=== PATIENT | male | born 1950 | race Caucasian/White ===

== ENCOUNTER 2018-06-27 16:25 | Inpatient (IN) ==
[2018-06-27] MEDS ORDERED: Acetaminophen 325 MG TABLET PO ONE (16:42)
[2018-06-27] MEDS ORDERED: 0.9 % Sodium Chloride 1,000 ML IVC ONE (16:42)
--- NOTE | 2018-06-27 16:47 | Emergency Department Note ---
Disposition Clinical Impression: Pneumonia, Weakness, Hyponatremia Disposition: Admitted As Inpatient Condition: Fair Forms: ED Satisfaction Letter Weakness HPI - General Chief complaint: ED Weakness Stated complaint: weakness Time Seen by Provider: 06/27/18 16:30 Source: patient Mode of arrival: private vehicle Limitations: no limitations Nursing Notes Reviewed: Yes Vital Signs Reviewed: Yes - History of Present Illness HPI Narrative: This is a 68-year-old male who presents with complaints of fever, fatigue, weakness, body aches, and a productive cough. Patient states he has been sick for 1 week and was seen 3 days ago for the same and told he had a virus and sent home. Patient states he has just gotten worse at home and is not eating or drinking. Patient's Tmax has been 103. Patient denies any abdominal pain, vomiting, or urinary symptoms. Patient does state associated diarrhea. Patient denies chest pain. Pt Subjective Complaint: generalized weakness/fatigue Onset (ago): week(s) (1) Duration: constant - Related Data Home Medications Medication Instructions Recorded Confirmed Metoprolol XL (24 HR) Succ [Toprol 25 mg PO DAILY 04/22/15 06/22/18 Xl] Multivits,Ca,Min/Iron/FA/Lycop 1 each PO DAILY 04/22/15 06/22/18 [Centrum Men's Tablet] Pioglitazone [Actos] 45 mg PO DAILY 04/22/15 06/22/18 Ramipril [Altace] 10 mg PO DAILY 04/22/15 06/22/18 Tizanidine HCl 4 mg PO Q8HR PRN 04/22/15 06/22/18 metFORMIN [Glucophage] 1,000 mg PO BID 04/22/15 06/22/18 Clopidogrel [Plavix] 75 mg PO DAILY 09/29/17 06/22/18 Sertraline [Zoloft] 150 mg PO DAILY 09/29/17 06/22/18 Albuterol Sulfate [Ventolin Hfa] 2 inh IH Q6HR PRN 12/12/17 06/22/18 Amlodipine Besylate 2.5 mg PO BID 12/12/17 06/22/18 Azelastine HCl [Astepro] 2 spray NS BID 12/12/17 06/22/18 Dapagliflozin Propanediol [Farxiga] 5 mg PO DAILY 12/12/17 06/22/18 Insulin Degludec [Tresiba 10 unit SQ HS 12/12/17 06/22/18 Flextouch U-200] Iron,Carbonyl/Ascorbic Acid 1 each PO BID 12/12/17 06/22/18 [Vitron-C Tablet] glipiZIDE [Glipizide] 10 mg PO BID 04/12/18 06/22/18 Previous Rx's Medication Instructions Recorded Omeprazole [PriLOSEC] 20 mg PO BIDAC #60 cap 09/29/17 Aspirin 81 mg PO DAILY #30 tab.chew 01/17/18 Allergies Allergy/AdvReac Type Severity Reaction Status Date / Time atorvastatin [From Lipitor] AdvReac Muscle Pain Verified 06/22/18 08:16 rosuvastatin [From Crestor] AdvReac Muscle Pain Verified 06/22/18 08:16 simvastatin AdvReac Muscle Pain Verified 06/22/18 08:16 All systems ED: reviewed and negative except as stated. Constitutional: Reports: fever, chills, weakness (general). Denies: weight change Eyes: Denies: eye pain, eye discharge, vision change ENT ED: Denies: ear pain, throat pain, dental pain, hearing loss, epistaxis, congestion, dysphagia Cardiovascular: Denies: chest pain, palpitations, dyspnea on exertion, edema, syncope Respiratory: Reports: cough, dyspnea. Denies: wheezes, hemoptysis, stridor Gastrointestinal: Reports: diarrhea. Denies: abdominal pain, nausea, vomiting, constipation, hematemesis, melena, hematochezia Genitourinary: Denies: urgency, dysuria, frequency, hematuria Musculoskeletal: Reports: myalgia. Denies: back pain, neck pain, arthralgia Integumentary: Denies: rash, abrasion, lesions Neurological: Denies: headache, weakness, numbness, paresthesias, confusion, abnormal gait, vertigo Psychiatric: Denies: anxiety, depression, suicidal thoughts, homicidal thoughts, auditory hallucinations, visual hallucinations Endocrine: Reports: fatigue Hematological/Lymphatic: Denies: easy bleeding, easy bruising Allergic/Immunologic: Denies: facial swelling, urticaria Past Medical History - Past Medical History Attestation: Yes The following information was validated with the patient. Source: patient Medical history: Reports: coronary artery disease, diabetes, GERD, hyperlipidemia Surgical history: Reports: angioplasty/stent, appendectomy, cholecystectomy, knee replacement, sinus surgery, tonsilectomy, other Psychiatric history: Reports: depression - Social History Smoking Status: Current every day smoker Smokeless Tobacco Status: No Alcohol use: Reports: rarely Drug use: Reports: none Physical Exam - General Limitations: no limitations General appearance: alert, in no apparent distress - Head Head exam: atraumatic, normocephalic, normal inspection - Eye Eye exam: Present: normal appearance, PERRL, EOMI - ENT ENT exam: normal exam, normal oropharynx, mucous membranes moist - Expanded ENT Exam External ear exam: Present: normal external inspection Mouth exam: Present: normal external inspection Teeth exam: Present: normal inspection Throat exam: Present: normal inspection - Neck Neck exam: Present: normal inspection, full ROM, trachea midline - Chest Chest inspection: Present: normal inspection, symmetric chest wall rise - Respiratory Respiratory exam: Present: other (rhonchi) - Cardiovascular Cardiovascular exam: Present: normal rhythm, tachycardia, normal heart sounds - Abdominal Exam Abdominal exam: Present: soft, Non-Tender. Absent: tenderness, distention, guarding, rebound, rigidity - Extremities Exam Extremities exam: Present: normal inspection, full ROM. Absent: tenderness, pedal edema - Expanded Upper Extremity Exam Shoulder exam: Present: normal inspection, full ROM Arm exam: Present: normal inspection, full ROM Elbow exam: Present: normal inspection, full ROM Forearm/Wrist exam: Present: normal inspection, full ROM Hand exam: Present: normal inspection, full ROM Vascular exam: Normal: capillary refill, radial pulse - Expanded Lower Extremity Exam Hip/Pelvis exam: Present: normal inspection, full ROM Upper leg exam: Present: normal inspection, full ROM Knee exam: Present: normal inspection, full ROM Lower leg exam: Present: normal inspection, full ROM Ankle exam: Present: normal inspection, full ROM Foot/toe exam: Present: normal inspection, full ROM Neurovascular/Tendon exam: Absent: motor deficit, sensory deficit, tendon deficit - Back Exam Back exam: Present: normal inspection, full ROM. Absent: tenderness - Neurological Exam Neurological exam: Present: alert, oriented X3 - Expanded Neurological Exam Patient oriented to: Present: person, place, time Coma Scale Eye Opening: Spontaneous Coma Scale Motor Response: Obeys Commands Coma Scale Verbal Response: Oriented Coma Scale Total: 15 - Psychiatric Psychiatric exam: Present: normal affect, normal mood - Skin Skin exam: Present: warm, dry, intact, normal color Course - Reevaluation(s) Reevaluation #1: I spoke with patient about admission and okay with this plan and all questions answered. Time: 18:30 - Consultations Consultation #1: I spoke with Dr. Dye hospitalist okay to admit. Time: 18:25 Vital Signs Temperature 98.9 F 06/27/18 16:40 Pulse Rate 99 06/27/18 16:40 Respiratory Rate 16 06/27/18 16:40 Blood Pressure 118/56 06/27/18 16:40 O2 Sat by Pulse Oximetry 99 06/27/18 16:40 Temperature 98.9 F 06/27/18 16:40 Pulse Rate 62 06/27/18 17:27 Respiratory Rate 18 06/27/18 17:27 Blood Pressure 132/63 06/27/18 17:27 O2 Sat by Pulse Oximetry 100 06/27/18 17:27 Oxygen Delivery Oxygen Delivery Nasal Cannula Weakness - Medical Records Medical records reviewed: Yes I reviewed the patient's medical records. - Lab Data Lab results reviewed: Yes I reviewed the patient's lab results. Result diagrams: 06/27/18 16:57 06/27/18 16:57 Lab Results 06/27/18 06/27/18 06/27/18 Range/Units 16:57 16:57 16:57 WBC 3.7 L (4.3-11.1) K/mcL RBC 3.49 L (4.19-5.50) M/mcL Hgb 9.5 L (12.9-16.9) g/dL Hct 30.1 L (37.5-50.1) % MCV 86.2 (83.0-100.0) fL MCH 27.2 L (28.0-33.3) pg MCHC 31.6 (31.6-35.5) g/dL RDW 17.4 H (11.5-14.5) % Plt Count 134 L (140-400) K/mcL MPV 10.4 (9.4-12.4) fL Seg Neutrophils % 62.0 % Band Neutrophils % 4.0 (0-4) % Lymphocytes % 26.0 % Monocytes % 8.0 % Neutrophils # 2.4 (1.6-8.9) K/mcL Lymphocytes # 1.0 (0.6-4.6) K/mcL Monocytes # 0.3 (0.0-1.3) K/mcL Platelet Estimate Decreased L (Normal) PT 11.7 (9.4-12.1) Seconds INR 1.0 APTT 31.9 (26.0-36.0) Seconds Sodium 130 L (136-145) mEq/L Potassium 3.4 L (3.5-5.1) mEq/L Chloride 100 (98-107) mEq/L Carbon Dioxide 20 L (23-29) mEq/L BUN 22 (8-23) mg/dL Creatinine 0.86 (0.70-1.30) mg/dL Est GFR ( Amer) > 60 (> 60) Est GFR (Non-Af Amer) > 60 (> 60) BUN/Creatinine Ratio 26 (6-26) Glucose 82 (70-105) mg/dL Calculated Osmolality 272 L (280-300) Lactic Acid (0.5-2.2) mmol/L Calcium 8.4 L (8.6-10.3) mg/dL Magnesium 1.8 (1.6-2.6) mg/dL Total Bilirubin 0.3 (0.3-1.0) mg/dL AST 37 (13-39) Units/L ALT 27 (7-52) Units/L Alkaline Phosphatase 37 (34-104) Units/L Troponin I < 0.03 (< 0.04) ng/mL B-Natriuretic Peptide (Less than 100) pg/mL Serum Total Protein 6.5 (6.4-8.9) g/dL Albumin 3.7 (3.5-5.7) g/dL Globulin 2.8 (2.4-3.5) g/dL Albumin/Globulin Ratio 1.3 (1.1-2.2) Lipase (11-82) Units/L TSH 1.013 (0.340-5.600) mcIU/mL Urine Color (Yellow) Urine Clarity (Clear) Urine pH (5.0-8.0) pH Units Ur Specific [place] (1.010-1.025) Urine Protein (Neg-Trace) mg/dL Urine Glucose (UA) (Normal) mg/dL Urine Ketones (Negative) mg/dL Urine Blood (Negative) Urine Nitrite (Negative) Urine Bilirubin (Negative) Urine Urobilinogen (Normal) mg/dL Ur Leukocyte Esterase (Negative) Urine Microscopic RBC (0-3) per hpf Urine Microscopic WBC (0-3) per hpf Ur Squamous Epith Cells (None-Few) per lpf Urine Bacteria (None-Few) per hpf Hyaline Casts (None-Few) per lpf Granular Casts (None Seen) per lpf Ur Culture Indicated? (NO) 06/27/18 06/27/18 06/27/18 Range/Units 16:57 16:57 16:57 WBC (4.3-11.1) K/mcL RBC (4.19-5.50) M/mcL Hgb (12.9-16.9) g/dL Hct (37.5-50.1) % MCV (83.0-100.0) fL MCH (28.0-33.3) pg MCHC (31.6-35.5) g/dL RDW (11.5-14.5) % Plt Count (140-400) K/mcL MPV (9.4-12.4) fL Seg Neutrophils % % Band Neutrophils % (0-4) % Lymphocytes % % Monocytes % % Neutrophils # (1.6-8.9) K/mcL Lymphocytes # (0.6-4.6) K/mcL Monocytes # (0.0-1.3) K/mcL Platelet Estimate (Normal) PT (9.4-12.1) Seconds INR APTT (26.0-36.0) Seconds Sodium (136-145) mEq/L Potassium (3.5-5.1) mEq/L Chloride (98-107) mEq/L Carbon Dioxide (23-29) mEq/L BUN (8-23) mg/dL Creatinine (0.70-1.30) mg/dL Est GFR ( Amer) (> 60) Est GFR (Non-Af Amer) (> 60) BUN/Creatinine Ratio (6-26) Glucose (70-105) mg/dL Calculated Osmolality (280-300) Lactic Acid 1.2 (0.5-2.2) mmol/L Calcium (8.6-10.3) mg/dL Magnesium (1.6-2.6) mg/dL Total Bilirubin (0.3-1.0) mg/dL AST (13-39) Units/L ALT (7-52) Units/L Alkaline Phosphatase (34-104) Units/L Troponin I (< 0.04) ng/mL B-Natriuretic Peptide 46 (Less than 100) pg/mL Serum Total Protein (6.4-8.9) g/dL Albumin (3.5-5.7) g/dL Globulin (2.4-3.5) g/dL Albumin/Globulin Ratio (1.1-2.2) Lipase 47 (11-82) Units/L TSH (0.340-5.600) mcIU/mL Urine Color (Yellow) Urine Clarity (Clear) Urine pH (5.0-8.0) pH Units Ur Specific [place] (1.010-1.025) Urine Protein (Neg-Trace) mg/dL Urine Glucose (UA) (Normal) mg/dL Urine Ketones (Negative) mg/dL Urine Blood (Negative) Urine Nitrite (Negative) Urine Bilirubin (Negative) Urine Urobilinogen (Normal) mg/dL Ur Leukocyte Esterase (Negative) Urine Microscopic RBC (0-3) per hpf Urine Microscopic WBC (0-3) per hpf Ur Squamous Epith Cells (None-Few) per lpf Urine Bacteria (None-Few) per hpf Hyaline Casts (None-Few) per lpf Granular Casts (None Seen) per lpf Ur Culture Indicated? (NO) 06/27/18 Range/Units 17:25 WBC (4.3-11.1) K/mcL RBC (4.19-5.50) M/mcL Hgb (12.9-16.9) g/dL Hct (37.5-50.1) % MCV (83.0-100.0) fL MCH (28.0-33.3) pg MCHC (31.6-35.5) g/dL RDW (11.5-14.5) % Plt Count (140-400) K/mcL MPV (9.4-12.4) fL Seg Neutrophils % % Band Neutrophils % (0-4) % Lymphocytes % % Monocytes % % Neutrophils # (1.6-8.9) K/mcL Lymphocytes # (0.6-4.6) K/mcL Monocytes # (0.0-1.3) K/mcL Platelet Estimate (Normal) PT (9.4-12.1) Seconds INR APTT (26.0-36.0) Seconds Sodium (136-145) mEq/L Potassium (3.5-5.1) mEq/L Chloride (98-107) mEq/L Carbon Dioxide (23-29) mEq/L BUN (8-23) mg/dL Creatinine (0.70-1.30) mg/dL Est GFR ( Amer) (> 60) Est GFR (Non-Af Amer) (> 60) BUN/Creatinine Ratio (6-26) Glucose (70-105) mg/dL Calculated Osmolality (280-300) Lactic Acid (0.5-2.2) mmol/L Calcium (8.6-10.3) mg/dL Magnesium (1.6-2.6) mg/dL Total Bilirubin (0.3-1.0) mg/dL AST (13-39) Units/L ALT (7-52) Units/L Alkaline Phosphatase (34-104) Units/L Troponin I (< 0.04) ng/mL B-Natriuretic Peptide (Less than 100) pg/mL Serum Total Protein (6.4-8.9) g/dL Albumin (3.5-5.7) g/dL Globulin (2.4-3.5) g/dL Albumin/Globulin Ratio (1.1-2.2) Lipase (11-82) Units/L TSH (0.340-5.600) mcIU/mL Urine Color Yellow (Yellow) Urine Clarity Clear (Clear) Urine pH 6.0 (5.0-8.0) pH Units Ur Specific [place] 1.030 H (1.010-1.025) Urine Protein 100 H (Neg-Trace) mg/dL Urine Glucose (UA) 500 H (Normal) mg/dL Urine Ketones Trace H (Negative) mg/dL Urine Blood Small H (Negative) Urine Nitrite Negative (Negative) Urine Bilirubin Negative (Negative) Urine Urobilinogen Normal (Normal) mg/dL Ur Leukocyte Esterase Negative (Negative) Urine Microscopic RBC 0-3 (0-3) per hpf Urine Microscopic WBC 3-5 H (0-3) per hpf Ur Squamous Epith Cells Many H (None-Few) per lpf Urine Bacteria None Seen (None-Few) per hpf Hyaline Casts Few (None-Few) per lpf Granular Casts Few H (None Seen) per lpf Ur Culture Indicated? NO (NO) - Radiology Data Radiology results reviewed: Yes I reviewed the patient's radiology results. - EKG Data EKG attestation: Yes I reviewed and interpreted this EKG. EKG shows normal: sinus rhythm Rate: tachycardia Rhythm: NSR Lily/QRS: normal When compared to previous EKG there are: no significant changes Interpretation: no acute changes
[2018-06-27 17:13] LABS: Hematocrit 30.1 % (37.5-50.1); Hemoglobin 9.5 g/dL (12.9-16.9); Mean Corpuscular HGB Conc 31.6 g/dL (31.6-35.5); Mean Corpuscular Hemoglobin 27.2 pg (28.0-33.3); Mean Corpuscular Volume 86.2 fL (83.0-100.0); Mean Platelet Volume 10.4 fL (9.4-12.4); Monocytes # 0.3 K/mcL (0.0-1.3); Platelet Count 134 K/mcL (140-400); Red Blood Count 3.49 M/mcL (4.19-5.50); Red Cell Distribution Width 17.4 % (11.5-14.5)
[2018-06-27 17:21] LABS: Prothrombin Time 11.7 Seconds (9.4-12.1)
[2018-06-27 17:24] LABS: Activated Partial Thrombo Time 31.9 Seconds (26.0-36.0)
[2018-06-27 17:36] LABS: BUN/Creatinine Ratio 26 (6-26); Blood Urea Nitrogen 22 mg/dL (8-23); Carbon Dioxide 20 mEq/L (23-29); Chloride 100 mEq/L (98-107); Glucose 82 mg/dL (70-105); Magnesium 1.8 mg/dL (1.6-2.6); Osmolality,Calculated 272 (280-300); Potassium 3.4 mEq/L (3.5-5.1); Sodium 130 mEq/L (136-145); eGFR For Non-African Americans > 60 (> 60)
[2018-06-27 17:37] LABS: Alanine Aminotransferase 27 Units/L (7-52); Albumin 3.7 g/dL (3.5-5.7); Albumin/Globulin Ratio 1.3 (1.1-2.2); Alkaline Phosphatase 37 Units/L (34-104); Aspartate Amino Transferase 37 Units/L (13-39); Bilirubin,Total 0.3 mg/dL (0.3-1.0); Calcium 8.4 mg/dL (8.6-10.3); Globulin 2.8 g/dL (2.4-3.5); Total Protein 6.5 g/dL (6.4-8.9); Troponin I < 0.03 ng/mL (< 0.04)
[2018-06-27 17:47] LABS: Thyroid Stimulating Hormone 1.013 mcIU/mL (0.340-5.600)
[2018-06-27 17:51] LABS: Bilirubin,Urine Negative (Negative); Blood,Urine Small (Negative); Clarity,Urine Clear (Clear); Color,Urine Yellow (Yellow); Glucose,Urine (UA) 500 mg/dL (Normal); Ketones,Urine Trace mg/dL (Negative); Leukocyte Esterase,Urine Negative (Negative); Nitrite,Urine Negative (Negative); Protein,Urine 100 mg/dL (Neg-Trace); Urobilinogen,Urine Normal (Normal)
[2018-06-27 17:53] LABS: Bacteria,Urine None Seen per hpf (None-Few); Hyaline Casts,Urine Few per lpf (None-Few); RBC,Urine 0-3 per hpf (0-3); Squamous Epithelial Cell,Urine Many per lpf (None-Few)
[2018-06-27 17:55] LABS: Neutrophils # 2.4 K/mcL (1.6-8.9); Platelet Estimate Decreased (Normal)
[2018-06-27 18:03] LABS: Granular Casts,Urine Few per lpf (None Seen)
[2018-06-27] MEDS ORDERED: Azithromycin 500 MG in D5% in Water 250 ML IVPB ONE (18:24)
[2018-06-27] MEDS ORDERED: cefTRIAXone 1,000 MG in 0.9 % Sodium Chloride Mini Bag 100 ML IVPB ONE (18:24)
[2018-06-27] MEDS ORDERED: Naloxone 0.4 MG/ML INJ IVP PRN (22:44)
[2018-06-27] MEDS ORDERED: *HR* Dextrose 50 % in Water (Syg) 50 ML SYRINGE IVP PRN (22:54)
[2018-06-27] MEDS ORDERED: D5% in Water 1,000 ML IVC PRN (22:54)
[2018-06-27] MEDS ORDERED: Dextrose Gel 15 GM/37.5 ML TUBE PO PRN ×2 (22:54)
--- NOTE | 2018-06-27 23:52 | Internal Med History&Physical ---
<Abisai Montano P - Last Filed: 06/28/18 01:09> Date of Encounter: 06/28/18 Time of Encounter: 22:00 Internal Medicine - H&P: HPI Chief complaint: Pneumonia Admitted From: Home Plans for Post Hospital Care: Home History of present illness: Mr. Rainey is a 68 year old male with past medical history significant for CAD with 8 stents (last stent placement Fall 2017), hyperlipidemia, COPD, sleep apnea with CPAP, chronic anemia, diabetes, GERD, and depression who presents from primary care office for shortness of breath and fever. Was seen and discharged in ER on 06/23/2018 for similar symptoms. At that time was diagnosed with viral illness, tested negative for flu, and reportedly improved with fluids while in ED. Followed up with PCP today who subsequently sent him to the ER. Symptoms initially started 06/22/2018 and have gotten progressively worse. Has only taken tylenol at home for fever. Has had shortness of breath, chest tightness with non productive cough, nausea, vomiting, fever (highest 103 at home), aches, chills, fatigue, diarrhea, and decreased oral intake. Denies any urinary changes or hematemesis. Does report 2 episodes of dark red blood in stool last week prior to symptom onset but none since. Had colonoscopy completed with Dr Florence September 2017 showing diverticula and small polyp. Has chronic anemia for which he follows with the cancer center where he receives iron transfusions and is scheduled for one next week. Checks blood sugars regularly at home and reports they have been averaging 115. ER reported EKG as sinus tachycardia with no acute changes. ER obtained chest xray which showed new preihilar consolidations seen on the right, probably in the right lower lobe, compatible with perihilar pneumonia that should be followed to resolution. This was a new finding when compared with chest xray completed on 06/23/2018 while in the ED. Was placed on 4lpm nasal canula while in ER and does not wear any oxygen at home at baseline. Past Med Surg Social Fam HX - Past Medical History Medical history: coronary artery disease, diabetes, GERD, hyperlipidemia Additional medical history: sleep apnea, glaucoma, BPH, Psychiatric history: depression - Past Surgical History Surgical History: angioplasty/stent, appendectomy, cholecystectomy, knee replacement, sinus surgery, tonsilectomy, other Additional surgical history: Right knee replacement - Social History Smoking Status: Current every day smoker Smokeless Tobacco Status: No Alcohol use: rarely Drug use: none - Family History Father Hx Family Cardiac Disorders: Yes Internal Medicine - H&P: Meds Metoprolol XL (24 HR) Succ [Toprol Xl] 25 mg PO DAILY 04/22/15 [History] Multivits,Ca,Min/Iron/FA/Lycop [Centrum Men's Tablet] 1 tab PO DAILY 04/22/15 [History] Pioglitazone [Actos] 45 mg PO DAILY 04/22/15 [History] Tizanidine HCl 4 mg PO HS PRN 04/22/15 [History] metFORMIN [Glucophage] 1,000 mg PO BID 04/22/15 [History] Clopidogrel [Plavix] 75 mg PO DAILY 09/29/17 [History] Sertraline [Zoloft] 150 mg PO DAILY 09/29/17 [History] Albuterol Sulfate [Ventolin Hfa] 2 inh IH Q6HR PRN 12/12/17 [History] Dapagliflozin Propanediol [Farxiga] 5 mg PO DAILY 12/12/17 [History] Insulin Degludec [Tresiba Flextouch U-200] 10 unit SQ HS 12/12/17 [History] Aspirin 81 mg PO DAILY #30 tab.chew 01/17/18 [Rx] glipiZIDE [Glipizide] 10 mg PO BID 04/12/18 [History] Amlodipine Besylate 2.5 mg PO DAILY 06/27/18 [History] Ferrous Sulfate [Iron] 325 mg PO HS 06/27/18 [History] Omeprazole [PriLOSEC] 20 mg PO BID 06/27/18 [History] Ramipril 10 mg PO DAILY 06/27/18 [History] Zinc Acetate [Galzin] 50 mg PO DAILY 06/27/18 [History] Allergy/AdvReac Type Severity Reaction Status Date / Time atorvastatin [From Lipitor] AdvReac Muscle Pain Verified 06/27/18 21:46 rosuvastatin [From Crestor] AdvReac Muscle Pain Verified 06/27/18 21:46 simvastatin AdvReac Muscle Pain Verified 06/27/18 21:46 All Systems PM: A 10-system review of systems was performed and is negative for pertinent findings except as documented above in the HPI. - Constitutional Vitals: Temp Pulse Resp BP Pulse Ox 99.5 F 96 18 127/73 98 06/27/18 22:29 06/27/18 22:29 06/27/18 22:29 06/27/18 22:29 06/27/18 22:29 Exam: General: Alert and oriented. Skin:Normal color, no rash, no lesions. HEENT:Pupils equal, round and reactive. Cardiovascular:Normal S1 & S2, no rubs, murmurs or gallops. No JVD. Pulse regular. Lungs:Breath sounds decreased throughout, no wheezes or crackles. Abdomen:Soft, non-tender, no rigidity. Extremities:No deformity, no edema or tenderness, no joint swelling or clubbing. Neurological:Normal cognition and motor skills. Pulses:Carotid and radial pulses normal +2. Rest of the physical exam is non contributory. Internal Med - H&P Results - Labs CBC & Chem 7: 06/27/18 23:27 06/27/18 16:57 Labs: Short CBC 06/27/18 Range/Units 16:57 WBC 3.7 L (4.3-11.1) K/mcL Hgb 9.5 L (12.9-16.9) g/dL Hct 30.1 L (37.5-50.1) % Plt Count 134 L (140-400) K/mcL Neutrophils # 2.4 (1.6-8.9) K/mcL BMP 06/27/18 16:57 Sodium 130 L Potassium 3.4 L Chloride 100 Carbon Dioxide 20 L BUN 22 Creatinine 0.86 Glucose 82 Calcium 8.4 L Cardiac Enzymes 06/27/18 Range/Units 16:57 Troponin I < 0.03 (< 0.04) ng/mL Liver Function 06/27/18 Range/Units 16:57 Total Bilirubin 0.3 (0.3-1.0) mg/dL AST 37 (13-39) Units/L ALT 27 (7-52) Units/L Alkaline Phosphatase 37 (34-104) Units/L Albumin 3.7 (3.5-5.7) g/dL Urine 06/27/18 Range/Units 17:25 Urine Color Yellow (Yellow) Urine Clarity Clear (Clear) Urine pH 6.0 (5.0-8.0) pH Units Ur Specific [place] 1.030 H (1.010-1.025) Urine Protein 100 H (Neg-Trace) mg/dL Urine Glucose (UA) 500 H (Normal) mg/dL - Impressions ITS Impressions Chest X-Ray 06/27/18 16:42 IMPRESSION: New perihilar consolidations seen on the right, probably in the right lower lobe, compatible with perihilar pneumonia. That should be followed to resolution. D/ / Saul Caceres MD / Saul Caceres MD Interpreting Provider: Saul Caceres MD - Assessment and Plan (1) Pneumonia Current Visit: Yes Status: Acute Assessment and plan: Chest xray with new perihilar consolidations in right lower lobe. Blood cultures and urine antigens pending. Influenza A and B antigens negative. Single liter bolus received in ER, will repeat second liter bolus and start MIVF. Rocephin and Azithromycin started in ER, will continue same antibiotics daily and add Levaquin. Continue oxygen via nasal canula, titrate as tolerated to maintain saturation greater than 92%. Qualifiers: Pneumonia type: due to unspecified organism Laterality: right Lung location: lower lobe of lung Qualified Code(s): J18.1 - Lobar pneumonia, unspecified organism (2) Shortness of breath Current Visit: Yes Status: Acute Assessment and plan: Likely secondary to pneumonia. Will obtain chest CTA to rule out PE given accompanying chest tightness and tachycardia. (3) Anemia Current Visit: Yes Status: Acute Assessment and plan: Acute on chronic. No current signs of bleeding, reports possible dark red blood in stool last week. Repeat labs ordered. Qualifiers: Anemia type: unspecified type Qualified Code(s): D64.9 - Anemia, unspecified (4) Thrombocytopenia Current Visit: Yes Status: Acute Assessment and plan: No current signs of bleeding, reports possible dark red blood in stool last week. Repeat labs ordered. (5) Blood in stool Current Visit: Yes Status: Acute Assessment and plan: No current signs of bleeding, reports possible dark red blood in stool last week. Repeat labs ordered. Occult stool ordered. Continue to monitor for blood in stool. Had colonoscopy September 2017 showing diverticula and small polyp. (6) Hyponatremia Current Visit: Yes Status: Acute Assessment and plan: Suspected secondary to decreased oral intake. Liter bolus received in ER, will continue MIVF. Repeat labs ordered. (7) Hypokalemia Current Visit: Yes Status: Acute Assessment and plan: Likely secondary to decreased intake. Repeat labs ordered, replace if necessary. (8) Diabetes mellitus Current Visit: Yes Status: Chronic Assessment and plan: Diabetic diet. Hold home medications. Accucheck ACHS. Low dose sliding scale. Qualifiers: Qualified Code(s): E13.9 - Other specified diabetes mellitus without complications (9) Fever Current Visit: Yes Status: Acute Assessment and plan: Afebrile since admission. Tylenol PRN. Qualifiers: Fever type: unspecified Qualified Code(s): R50.9 - Fever, unspecified - Time Spent With Patient Total time spent is greater than 50% in coordination of care (as documented) at patient's floor/unit and/or counseling patient: <Riley Varner - Last Filed: 06/28/18 04:13> Date of Encounter: 06/28/18 Time of Encounter: 00:50 - Constitutional Constitutional: chills, fever(s) - EENT Eyes: no blurry vision, no change in vision Ears: no ear pain, no tinnitus Nose, mouth and throat: nasal congestion, no sinus pressure, no sore throat - Cardiovascular Cardiovascular ROS IM: chest pain, dyspnea, dyspnea on exertion, palpitations - Respiratory Respiratory: cough, dyspnea, pain on inspiration, chest congestion, excessive phlegm production, pain with cough, no hemoptysis, no change in phlegm color - Gastrointestinal Gastrointestinal: hematochezia, nausea, vomiting, no abdominal pain, no diarr hea, no hematemesis, no melena - Genitourinary Genitourinary ROS male: no dysuria, no flank pain - Neurological Neurological ROS: dizziness - Constitutional Vitals: Temp Pulse Resp BP Pulse Ox 102.2 F H 116 26 150/72 94 06/28/18 02:50 06/28/18 02:50 06/28/18 02:50 06/28/18 02:50 06/28/18 02:50 General appearance: Present: A&O X 3, severe distress Exam: patient acutely ill; SOB; complaining of severe pleuritic CP upon my assessment - Head Head exam: Present: normal inspection - Eye Eye exam: Present: PERRL. Absent: scleral icterus - ENT ENT exam: Present: mucous membranes dry, normal exam - Neck Neck exam general surgery: Present: full ROM, supple, trachea midline. Absent: lymphadenopathy, tenderness - Respiratory Respiratory exam: Present: accessory muscle use, decreased breath sounds, rales (right base), respiratory distress, tachypnea. Absent: chest wall tenderness, stridor, wheezes - Cardiovascular Cardiovascular exam: Present: +S1, +S2, tachycardia. Absent: diastolic murmur, systolic murmur - GI/Abdominal GI/Abdominal exam: Present: normal bowel sounds, soft. Absent: hepatomegaly, mass, splenomegaly, tenderness - Extremities Exam Extremities exam: Present: full ROM, normal capillary refill, warm, radial pulses palpable and symmetrical. Absent: calf tenderness, joint swelling, pedal edema, tenderness - Back Exam Back exam: Absent: CVA tenderness (L), CVA tenderness (R) - Neurological Exam Neurological exam: Present: alert, CN II-XII intact, oriented X3, no focal deficits, strengths equal and symetr throughout - Psychiatric Psychiatric exam: Present: normal affect, normal mood - Skin Skin exam: Present: dry, intact, warm Internal Med - H&P Results - Labs CBC & Chem 7: 06/27/18 23:27 06/27/18 16:57 Labs: Short CBC 06/27/18 06/27/18 Range/Units 16:57 23:27 WBC 3.7 L 2.5 L (4.3-11.1) K/mcL Hgb 9.5 L 8.2 L (12.9-16.9) g/dL Hct 30.1 L 25.7 L (37.5-50.1) % Plt Count 134 L 123 L (140-400) K/mcL Neutrophils # 2.4 1.6 (1.6-8.9) K/mcL BMP 06/27/18 16:57 Sodium 130 L Potassium 3.4 L Chloride 100 Carbon Dioxide 20 L BUN 22 Creatinine 0.86 Glucose 82 Calcium 8.4 L Cardiac Enzymes 06/27/18 Range/Units 16:57 Troponin I < 0.03 (< 0.04) ng/mL Liver Function 06/27/18 Range/Units 16:57 Total Bilirubin 0.3 (0.3-1.0) mg/dL AST 37 (13-39) Units/L ALT 27 (7-52) Units/L Alkaline Phosphatase 37 (34-104) Units/L Albumin 3.7 (3.5-5.7) g/dL Urine 06/27/18 Range/Units 17:25 Urine Color Yellow (Yellow) Urine Clarity Clear (Clear) Urine pH 6.0 (5.0-8.0) pH Units Ur Specific [place] 1.030 H (1.010-1.025) Urine Protein 100 H (Neg-Trace) mg/dL Urine Glucose (UA) 500 H (Normal) mg/dL - ABG Interpretation ABG results: 06/28/18 01:29 ABG pH 7.45 ABG pCO2 28 L ABG pO2 64 L ABG HCO3 19 L ABG Total CO2 20 ABG O2 Saturation 93 L ABG Base Excess -4 L - Impressions ITS Impressions Chest X-Ray 06/27/18 16:42 IMPRESSION: New perihilar consolidations seen on the right, probably in the right lower lobe, compatible with perihilar pneumonia. That should be followed to resolution. D/ / Saul Caceres MD / Saul Caceres MD Interpreting Provider: Saul Caceres MD Chest CTA 06/28/18 01:14 IMPRESSION: 1. No findings of pulmonary embolism. 2. Right lower lobe pneumonia, similar to the earlier radiograph. Recommend follow-up to resolution. 3. Trace right pleural effusion. D/ / Casey Gonzalez MD / Casey Gonzalez MD Interpreting Provider: Casey Gonzalez MD - Assessment and Plan (1) Pneumonia Current Visit: Yes Status: Acute Qualifiers: Pneumonia type: due to unspecified organism Laterality: right Lung location: lower lobe of lung Qualified Code(s): J18.1 - Lobar pneumonia, unspecified organism (2) Anemia Current Visit: Yes Status: Acute Qualifiers: Anemia type: unspecified type Qualified Code(s): D64.9 - Anemia, unspecified (3) Thrombocytopenia Current Visit: Yes Status: Acute (4) Hyponatremia Current Visit: Yes Status: Acute (5) Hypokalemia Current Visit: Yes Status: Acute (6) Diabetes mellitus Current Visit: Yes Status: Chronic Qualifiers: Qualified Code(s): E13.9 - Other specified diabetes mellitus without complications (7) Blood in stool Current Visit: Yes Status: Acute (8) Shortness of breath Current Visit: Yes Status: Acute (9) Fever Current Visit: Yes Status: Acute Qualifiers: Fever type: unspecified Qualified Code(s): R50.9 - Fever, unspecified - Time Spent With Patient Total time spent is greater than 50% in coordination of care (as documented) at patient's floor/unit and/or counseling patient: - Attending Attestation I discussed the patient TANGIRNAQ, past medical history, review of systems, lab data, imaging data, and exam findings with Kailash Montano CNP. I then saw and examined patient independently as well. Upon my assessment of the patient, he appeared to be acutely ill, in severe distress secondary to pleuritic chest pain and dyspnea, tachycardic, and exhibiting signs of difficulty breathing. Blood pressure was preserved but heart rate was tachycardic. He appeared to be clin ically septic from pneumonia. I talked with his nurse Kailash Montano CNP as well and requested IV fluid bolus, stat CTA of the chest to rule out PE, and ongoing care and monitoring. I also ordered STAT ABG suggesting a respiratory alkalosis. He was complaining of severe pleuritic crushing type chest pain when I saw him. This prompted the CT angiogram of the chest which resulted as negative for PE. However, he does have evidence of pneumonia and mild pleural effusion. I agree with antibiotics Kailash ordered but I did request to add Vancomycin given his acuity and significant exposures. Other than my comments above and noted exam findings, I agree with Kailash's assessment and plan.
[2018-06-28 00:29] LABS: Basophils % 0.4 %; Hematocrit 25.7 % (37.5-50.1); Hemoglobin 8.2 g/dL (12.9-16.9); Immature Granulocytes % 0.8 % (0-4); Lymphocytes # 0.7 K/mcL (0.6-4.6); Lymphocytes % 26.5 %; Mean Corpuscular HGB Conc 31.9 g/dL (31.6-35.5); Mean Corpuscular Hemoglobin 27.2 pg (28.0-33.3); Mean Corpuscular Volume 85.4 fL (83.0-100.0); Mean Platelet Volume 11.6 fL (9.4-12.4); Monocytes # 0.3 K/mcL (0.0-1.3); Monocytes % 10.4 %; Platelet Count 123 K/mcL (140-400); Red Blood Count 3.01 M/mcL (4.19-5.50); Red Cell Distribution Width 17.4 % (11.5-14.5); Segmented Neutrophils % 61.9 %
[2018-06-28 00:33] LABS: Neutrophils # 1.6 K/mcL (1.6-8.9)
[2018-06-28 00:47] LABS: Platelet Estimate Decreased (Normal); Reactive Lymphocytes Present (Not Present)
[2018-06-28] MEDS ORDERED: Isovue-370 500 ML BOTTLE IVP ONE (01:14)
[2018-06-28] MEDS ORDERED: 0.9 % Sodium Chloride 1,000 ML IVC ONE (01:16)
[2018-06-28 01:32] LABS: ABG Base Excess -4 mEq/L (-2 to 3); ABG HCO3 19 mEq/L (21-27); ABG Oxygen Saturation 93 % (95-98); ABG PCO2 28 mmHg (35-45); ABG PH 7.45 pH Units (7.32-7.45); ABG PO2 64 mmHg (85-104); ABG TCO2 20 mEq/L (20-26)
[2018-06-28] MEDS ORDERED: Ipratropium/Albuterol Neb 3 ML IH PRN (01:35)
[2018-06-28] MEDS ORDERED: tiZANidine 4 MG TABLET PO PRN (01:36)
[2018-06-28] MEDS: Acetaminophen 325 MG TABLET PO PRN ×2 (03:06→16:48)
[2018-06-28] MEDS: 0.9 % Sodium Chloride 1,000 ML IVC SCH ×2 (03:07→11:26)
[2018-06-28 07:36] LABS: BUN/Creatinine Ratio 22 (6-26); Blood Urea Nitrogen 13 mg/dL (8-23); Calcium 7.6 mg/dL (8.6-10.3); Carbon Dioxide 17 mEq/L (23-29); Chloride 104 mEq/L (98-107); Glucose 101 mg/dL (70-105); Osmolality,Calculated 274 (280-300); Potassium 3.4 mEq/L (3.5-5.1); Sodium 132 mEq/L (136-145); eGFR For Non-African Americans > 60 (> 60)
[2018-06-28] MEDS: Insulin LISPRO 300 UNITS/3 ML VIAL SQ SCH ×4 (08:03→21:31)
[2018-06-28] MEDS: Metoprolol XL (24 HR) Succ 25 MG TAB.ER.24H PO SCH (08:06)
[2018-06-28] MEDS: Multivit/Ca/Min/Fe/FA 1 TAB TABLET PO SCH (08:06)
[2018-06-28] MEDS: amLODIPine 5 MG TABLET PO SCH (08:06)
[2018-06-28] MEDS: Aspirin 81 MG TAB.CHEW PO SCH (08:07)
[2018-06-28] MEDS: Lisinopril 20 MG TABLET PO SCH (08:07)
[2018-06-28] MEDS: Zinc Sulfate 220 MG CAPSULE PO SCH (08:07)
--- NOTE | 2018-06-28 15:35 | Internal Med Progress Note ---
Hospitalist Progress Note - Encounter Date of Encounter: 06/28/18 Time of Encounter: 10:30 - Subjective Interval History: Patient is lying down in bed. Has not noticed any significant improvement in his clinical symptoms. He has not had any fevers or chills but just feels very weak and tired. Does have cough. No sputum production. No chest pain at this time. - Exam Vitals: Temp Pulse Resp BP Pulse Ox 98.5 F 96 18 123/67 94 06/28/18 11:10 06/28/18 11:10 06/28/18 11:10 06/28/18 11:10 06/28/18 11:10 Exam: General: Patient is alert, no acute distress, oriented x 3 ENT: Mucous membranes moist Respiratory: Coarse breath sounds bilaterally. Rhonchi audible. Cardiovascular: Regular rate and rhythm. s1 and s2 normal No clicks, rubs, gallops, or murmurs. No pedal edema Abdomen: Abdomen is soft, nontender. Bowel sounds are present Musculoskeletal: Spontaneously moving all extremities Skin: warm, dry, intact. Neuro: Alert oriented x 3 normal cranial nerves, no focal deficits - Assessment and Plan (1) Pneumonia Current Visit: Yes Status: Acute Assessment and Plan: Patient with right sided pneumonia. Patient is being treated with Rocephin, azithromycin and vancomycin. Checking MRSA screen. Will stop vancomycin if negative. Continue bronchodilators. Will schedule them every 4 hours. Continue O2 supplementation as needed. (2) Anemia Current Visit: Yes Status: Acute Assessment and Plan: We will continue to monitor blood counts. Stool for occult blood ordered. Continue Prilosec (3) Thrombocytopenia Current Visit: Yes Status: Acute Assessment and Plan: Patient is pancytopenic. Platelets 123. We will monitor for now. If persistently low, will consult hematology for further evaluation. Will avoid heparin products for now. (4) Hyponatremia Current Visit: Yes Status: Acute Assessment and Plan: Sodium 132 this morning. We will continue IV fluids. (5) Hypokalemia Current Visit: Yes Status: Acute Assessment and Plan: We will continue to replete. (6) Diabetes mellitus Current Visit: Yes Status: Chronic Assessment and Plan: fairly controlled. Continue current insulin regimen (7) Blood in stool Current Visit: Yes Status: Acute Assessment and Plan: Stool for occult blood pending. Monitor blood counts DVT Prophylaxis: scds - Time Spent with Patient Total time spent is greater than 50% in coordination of care (as documented) at patient's floor/unit and/or counseling patient: Internal Medicine: Result - Labs CBC & Chem 7: 06/27/18 23:27 06/28/18 06:40 Labs: Short CBC 06/27/18 06/27/18 Range/Units 16:57 23:27 WBC 3.7 L 2.5 L (4.3-11.1) K/mcL Hgb 9.5 L 8.2 L (12.9-16.9) g/dL Hct 30.1 L 25.7 L (37.5-50.1) % Plt Count 134 L 123 L (140-400) K/mcL Neutrophils # 2.4 1.6 (1.6-8.9) K/mcL BMP 06/27/18 06/28/18 16:57 06:40 Sodium 130 L 132 L Potassium 3.4 L 3.4 L Chloride 100 104 Carbon Dioxide 20 L 17 L BUN 22 13 Creatinine 0.86 0.60 L Glucose 82 101 Calcium 8.4 L 7.6 L Cardiac Enzymes 06/27/18 Range/Units 16:57 Troponin I < 0.03 (< 0.04) ng/mL Liver Function 06/27/18 Range/Units 16:57 Total Bilirubin 0.3 (0.3-1.0) mg/dL AST 37 (13-39) Units/L ALT 27 (7-52) Units/L Alkaline Phosphatase 37 (34-104) Units/L Albumin 3.7 (3.5-5.7) g/dL Urine 06/27/18 Range/Units 17:25 Urine Color Yellow (Yellow) Urine Clarity Clear (Clear) Urine pH 6.0 (5.0-8.0) pH Units Ur Specific [place] 1.030 H (1.010-1.025) Urine Protein 100 H (Neg-Trace) mg/dL Urine Glucose (UA) 500 H (Normal) mg/dL - ABG Interpretation ABG results: ABG ABG pH 7.45 pH Units (7.32-7.45) 06/28/18 01:29 ABG pCO2 28 mmHg (35-45) L 06/28/18 01:29 ABG pO2 64 mmHg (85-104) L 06/28/18 01:29 ABG O2 Saturation 93 % (95-98) L 06/28/18 01:29 PT/INR, D-dimer PT 11.7 Seconds (9.4-12.1) 06/27/18 16:57 - Impressions Impressions Chest X-Ray 06/27/18 16:42 IMPRESSION: New perihilar consolidations seen on the right, probably in the right lower lobe, compatible with perihilar pneumonia. That should be followed to resolution. D/ / Saul Caceres MD / Saul Caceres MD Interpreting Provider: Saul Caceres MD Chest CTA 06/28/18 01:14 IMPRESSION: 1. No findings of pulmonary embolism. 2. Right lower lobe pneumonia, similar to the earlier radiograph. Recommend follow-up to resolution. 3. Trace right pleural effusion. D/ / Casey Gonzalez MD / Casey Gonzalez MD Interpreting Provider: Casey Gonzalez MD Consult Discharge Plan - Plan Referrals: Lydia Gray, THERAPEUTIC SPECIALIST [Primary Care Provider] - (1) Pneumonia Qualifiers: Pneumonia type: due to unspecified organism Laterality: right Lung location: lower lobe of lung Qualified Code(s): J18.1 - Lobar pneumonia, unspecified organism (2) Anemia Qualifiers: Anemia type: unspecified type Qualified Code(s): D64.9 - Anemia, unspecified (6) Diabetes mellitus Qualifiers: Qualified Code(s): E13.9 - Other specified diabetes mellitus without complications
--- NOTE | 2018-06-28 20:15 | Electrocardiograph Report ---
[address] [address] Test Date: 2018-06-27 Pat Name: Chavez Rainey Department: EXAMC2 Room: 2N11 Gender: M Front End [employer] Developer: : [id number] Requested By: Mara Bojorquez Order Number: [id number] Reading MD: Donita Nunez Measurements Intervals [place] Rate: 98 P: 84 MT: 145 QRS: 108 QRSD: 117 T: 69 QT: 336 QTc: 429 Interpretive Statements Sinus tachycardia PACs Artifact Electronically Signed On 06-28-2018 20:14:26 EDT by Donita Nunez
[2018-06-28] MEDS: Ipratropium/Albuterol Neb 3 ML IH SCH (20:21)
[2018-06-28] MEDS: Azithromycin 500 MG in D5% in Water 250 ML IVPB SCH (21:49)
[2018-06-28] MEDS: cefTRIAXone 1,000 MG in Water for inj. (sterile) 20 ML 10 ML IVP SCH (21:51)
[2018-06-29] MEDS: Ipratropium/Albuterol Neb 3 ML IH SCH ×7 (00:20→23:59)
[2018-06-29 06:14] LABS: Hematocrit 22.8 % (37.5-50.1); Hemoglobin 7.2 g/dL (12.9-16.9); Immature Granulocytes % 0.4 % (0-4); Lymphocytes # 0.8 K/mcL (0.6-4.6); Mean Corpuscular HGB Conc 31.6 g/dL (31.6-35.5); Mean Corpuscular Hemoglobin 27.4 pg (28.0-33.3); Mean Corpuscular Volume 86.7 fL (83.0-100.0); Monocytes # 0.3 K/mcL (0.0-1.3); Monocytes % 11.6 %; Neutrophils # 1.5 K/mcL (1.6-8.9); Platelet Count 151 K/mcL (140-400); Red Blood Count 2.63 M/mcL (4.19-5.50); Red Cell Distribution Width 17.8 % (11.5-14.5)
[2018-06-29 06:36] LABS: BUN/Creatinine Ratio 29 (6-26); Blood Urea Nitrogen 14 mg/dL (8-23); Calcium 7.7 mg/dL (8.6-10.3); Carbon Dioxide 18 mEq/L (23-29); Chloride 106 mEq/L (98-107); Glucose 135 mg/dL (70-105); Osmolality,Calculated 279 (280-300); Potassium 3.4 mEq/L (3.5-5.1); Sodium 133 mEq/L (136-145); eGFR For Non-African Americans > 60 (> 60)
[2018-06-29 06:49] LABS: Platelet Estimate Normal (Normal)
[2018-06-29] MEDS: Zinc Sulfate 220 MG CAPSULE PO SCH (08:58)
[2018-06-29] MEDS: Metoprolol XL (24 HR) Succ 25 MG TAB.ER.24H PO SCH (08:58)
[2018-06-29] MEDS: amLODIPine 5 MG TABLET PO SCH (08:58)
[2018-06-29] MEDS: Lisinopril 20 MG TABLET PO SCH (08:58)
[2018-06-29] MEDS: Aspirin 81 MG TAB.CHEW PO SCH (08:58)
[2018-06-29] MEDS: Multivit/Ca/Min/Fe/FA 1 TAB TABLET PO SCH (08:58)
[2018-06-29] MEDS: cefTRIAXone 1,000 MG in Water for inj. (sterile) 20 ML 10 ML IVP SCH (08:59)
[2018-06-29] MEDS: Insulin LISPRO 300 UNITS/3 ML VIAL SQ SCH ×4 (08:59→19:40)
[2018-06-29 09:23] LABS: Iron < 10 mcg/dL (65-175); Transferrin 153 mg/dL (203-362)
[2018-06-29 09:52] LABS: Folate > 22.3 ng/mL (3.0-16.0); Vitamin B12 > 1500 pg/mL (250-1100)
[2018-06-29 10:22] LABS: Ferritin 258 ng/mL (20-250)
[2018-06-29] MEDS: Lactobacillus 1 EACH CAP.SPRINK PO SCH ×2 (12:49→19:39)
[2018-06-29] MEDS ORDERED: Aminoglycoside Consult 1 EACH MC ONE (13:56)
[2018-06-29] MEDS ORDERED: 0.9 % Sodium Chloride 250 ML ONE (14:11)
[2018-06-29] MEDS: Acetaminophen 325 MG TABLET PO PRN (14:21)
--- NOTE | 2018-06-29 15:58 | Internal Med Progress Note ---
Hospitalist Progress Note - Encounter Date of Encounter: 06/29/18 Time of Encounter: 15:55 - Subjective Interval History: Evaluated patient earlier today. Remains lethargic. Appears to be breathing better today. Has been taken off nasal cannula and saturating at 96% on room air. Does express symptoms of lethargy and exertional dyspnea. He also has a history of chronic iron deficiency anemia and was prescribed IV iron infusions for next week. - Exam Vitals: Temp Pulse Resp BP Pulse Ox 98.2 F 105 14 117/67 98 06/29/18 14:32 06/29/18 14:32 06/29/18 14:32 06/29/18 14:32 06/29/18 14:32 Exam: General: Patient is alert, no acute distress, oriented x 3 ENT: Mucous membranes moist Respiratory: Coarse breath sounds bilaterally with mild wheezing Cardiovascular: Regular rate and rhythm. s1 and s2 normal No clicks, rubs, gallops, or murmurs. No pedal edema Abdomen: Abdomen is soft, nontender. Bowel sounds are present Musculoskeletal: Spontaneously moving all extremities Skin: Pallor present Neuro: Alert oriented x 3 normal cranial nerves, no focal deficits - Assessment and Plan (1) Pneumonia Current Visit: Yes Status: Acute Assessment and Plan: Continue current antibiotics. MRSA screen is negative. Will stop vancomycin. Blood cultures are negative. Legionella and streptococcal antigens are negative. (2) Anemia Current Visit: Yes Status: Acute Assessment and Plan: Hemoglobin levels continue to go down. 7.2 this morning. Stool for occult blood was negative. Likely due to dietary nutritional iron deficiency. Will transfuse 1 unit PRBC as patient is symptomatic with exertional dyspnea and generalized fatigue. We will also transfuse IV iron today and tomorrow. (3) Thrombocytopenia Current Visit: Yes Status: Acute Assessment and Plan: Platelets 151 today. Improving (4) Hyponatremia Current Visit: Yes Status: Acute Assessment and Plan: Continues to improve. Sodium 133 today. (5) Hypokalemia Current Visit: Yes Status: Acute Assessment and Plan: Continue to replete. Potassium levels remained stable. (6) Diabetes mellitus Current Visit: Yes Status: Chronic Assessment and Plan: Blood sugars 163 this morning. Continue diabetic diet and sliding scale insulin (7) Blood in stool Current Visit: Yes Status: Ruled-out Assessment and Plan: Stool negative for occult blood DVT Prophylaxis: With SCDs due to severe anemia - Time Spent with Patient Total time spent is greater than 50% in coordination of care (as documented) at patient's floor/unit and/or counseling patient: Internal Medicine: Result - Labs CBC & Chem 7: 06/29/18 05:52 06/29/18 05:52 Labs: Short CBC 06/29/18 Range/Units 05:52 WBC 2.6 L (4.3-11.1) K/mcL Hgb 7.2 L (12.9-16.9) g/dL Hct 22.8 L (37.5-50.1) % Plt Count 151 (140-400) K/mcL Neutrophils # 1.5 L (1.6-8.9) K/mcL BMP 06/29/18 05:52 Sodium 133 L Potassium 3.4 L Chloride 106 Carbon Dioxide 18 L BUN 14 Creatinine 0.49 L Glucose 135 H Calcium 7.7 L - ABG Interpretation ABG results: ABG ABG pH 7.45 pH Units (7.32-7.45) 06/28/18 01:29 ABG pCO2 28 mmHg (35-45) L 06/28/18 01:29 ABG pO2 64 mmHg (85-104) L 06/28/18 01:29 ABG O2 Saturation 93 % (95-98) L 06/28/18 01:29 PT/INR, D-dimer PT 11.7 Seconds (9.4-12.1) 06/27/18 16:57 Consult Discharge Plan - Plan Referrals: Lydia Gray, [employer]AL EXTRUSION SUPERVISOR [Primary Care Provider] - (1) Pneumonia Qualifiers: Pneumonia type: due to unspecified organism Laterality: right Lung location: lower lobe of lung Qualified Code(s): J18.1 - Lobar pneumonia, unspecified organism (2) Anemia Qualifiers: Anemia type: iron deficiency Iron deficiency anemia type: inadequate dietary iron intake Qualified Code(s): D50.8 - Other iron deficiency anemias (6) Diabetes mellitus Qualifiers: Qualified Code(s): E13.9 - Other specified diabetes mellitus without complications
[2018-06-29] MEDS: Sodium Ferric Gluconat/Sucrose 250 MG in 0.9 % Sodium Chloride 100 ML IVPB SCH (18:21)
[2018-06-29] MEDS: Azithromycin 500 MG in D5% in Water 250 ML IVPB SCH (19:39)
[2018-06-30] MEDS: Ipratropium/Albuterol Neb 3 ML IH SCH ×3 (04:26→11:58)
[2018-06-30] MEDS: Insulin LISPRO 300 UNITS/3 ML VIAL SQ SCH (07:35)
[2018-06-30] MEDS: Lisinopril 20 MG TABLET PO SCH (07:36)
[2018-06-30] MEDS: amLODIPine 5 MG TABLET PO SCH (07:36)
[2018-06-30] MEDS: Multivit/Ca/Min/Fe/FA 1 TAB TABLET PO SCH (07:36)
[2018-06-30] MEDS: Zinc Sulfate 220 MG CAPSULE PO SCH (07:36)
[2018-06-30] MEDS: Metoprolol XL (24 HR) Succ 25 MG TAB.ER.24H PO SCH (07:36)
[2018-06-30] MEDS: Lactobacillus 1 EACH CAP.SPRINK PO SCH (07:36)
[2018-06-30] MEDS: Acetaminophen 325 MG TABLET PO PRN (07:37)
[2018-06-30] MEDS: cefTRIAXone 1,000 MG in Water for inj. (sterile) 20 ML 10 ML IVP SCH (07:37)
[2018-06-30] MEDS: Aspirin 81 MG TAB.CHEW PO SCH (07:37)
[2018-06-30 07:43] LABS: Hematocrit 25.9 % (37.5-50.1); Hemoglobin 8.3 g/dL (12.9-16.9); Immature Granulocytes % 0.4 % (0-4); Lymphocytes # 0.8 K/mcL (0.6-4.6); Mean Corpuscular Hemoglobin 27.5 pg (28.0-33.3); Mean Corpuscular Volume 85.8 fL (83.0-100.0); Mean Platelet Volume 11.2 fL (9.4-12.4); Monocytes # 0.3 K/mcL (0.0-1.3); Neutrophils # 1.5 K/mcL (1.6-8.9); Platelet Count 195 K/mcL (140-400); Red Blood Count 3.02 M/mcL (4.19-5.50); Red Cell Distribution Width 17.2 % (11.5-14.5); Segmented Neutrophils % 57.6 %
[2018-06-30 07:58] LABS: Platelet Estimate Normal (Normal); Reactive Lymphocytes Present (Not Present)
[2018-06-30 08:02] LABS: BUN/Creatinine Ratio 15 (6-26); Blood Urea Nitrogen 7 mg/dL (8-23); Calcium 8.2 mg/dL (8.6-10.3); Carbon Dioxide 20 mEq/L (23-29); Chloride 105 mEq/L (98-107); Glucose 181 mg/dL (70-105); Osmolality,Calculated 279 (280-300); Potassium 3.6 mEq/L (3.5-5.1); Sodium 133 mEq/L (136-145); eGFR For Non-African Americans > 60 (> 60)
[2018-06-30 08:18] VITALS: BP 145/70
[2018-06-30] MEDS: Sodium Ferric Gluconat/Sucrose 250 MG in 0.9 % Sodium Chloride 100 ML IVPB SCH (08:40)
--- NOTE | 2018-06-30 10:36 | Discharge Summary ---
- NOTES TO OUTPATIENT PROVIDER Notes to Outpatient Provider: Patient with history of coronary artery disease, chronic iron deficiency anemia, sleep apnea, COPD, diabetes who was hospitalized here with pneumonia. He was treated with IV antibiotics. Patient also has chronic anemia and had reported dark-colored stools. However his stool was negative for occult blood. His hemoglobin levels had trended down and so he received 1 unit of PRBC and he has received IV iron infusions. He has previously had upper GI endoscopy which showed gastritis. He is being managed to [facility] for chronic anemia and receives periodic iron infusions. Patient's respiratory symptoms have since improved. His cultures have been negative. He is clinically stable to be discharged home today. He does not require supplemental oxygen at this time. Orders not resulted at time of discharge: Pending orders 06/27/18 15:37 Culture,Blood [BC] Stat Date of Encounter: 06/30/18 Time of Encounter: 10:25 - Discharge Diagnosis (1) Pneumonia Priority: Primary Status: Acute Qualifiers: Pneumonia type: due to unspecified organism Laterality: right Lung location: lower lobe of lung Qualified Code(s): J18.1 - Lobar pneumonia, unspecified organism (2) Anemia Priority: Secondary Status: Acute Qualifiers: Anemia type: iron deficiency Iron deficiency anemia type: inadequate dietary iron intake Qualified Code(s): D50.8 - Other iron deficiency anemias (3) Thrombocytopenia Priority: Secondary Status: Acute (4) Hyponatremia Priority: Secondary Status: Acute (5) Hypokalemia Priority: Secondary Status: Resolved (6) Diabetes mellitus Priority: Secondary Status: Chronic Qualifiers: Qualified Code(s): E13.9 - Other specified diabetes mellitus without complications (7) Blood in stool Priority: Secondary Status: Ruled-out (8) Sepsis Priority: Secondary Status: Resolved Qualifiers: Sepsis type: sepsis due to unspecified organism Qualified Code(s): A41.9 - Sepsis, unspecified organism Hospital course: Mr. Rainey is a 68 year old male Patient with history of coronary artery disease, chronic iron deficiency anemia, sleep apnea, COPD, diabetes who was hospitalized here with pneumonia. He was treated with IV antibiotics. Patient also has chronic anemia and had reported dark-colored stools. However his stool was negative for occult blood. His hemoglobin levels had trended down and so he received 1 unit of PRBC and he has received IV iron infusions. He has previously had upper GI endoscopy which showed gastritis. He is being managed to [facility] for chronic anemia and receives periodic iron infusions. Patient's respiratory symptoms have since improved. His cultures have been negative. He is clinically stable to be discharged home today. He does not require supplemental oxygen at this time. Discharge discussed with: patient, nurse - Time Spent with Patient Total time spent providing and/or coordinating discharge services: Time spent: Greater than 30 minutes (32min) - Discharge Medications Prescriptions: New Azithromycin [Zithromax] 500 mg PO DAILY #6 tablet Cefdinir [Omnicef] 300 mg PO BID #8 capsule Continue Pioglitazone [Actos] 45 mg PO DAILY metFORMIN [Glucophage] 1,000 mg PO BID Multivits,Ca,Min/Iron/FA/Lycop [Centrum Men's Tablet] 1 tab PO DAILY Metoprolol XL (24 HR) Succ [Toprol Xl] 25 mg PO DAILY Tizanidine HCl 4 mg PO HS PRN PRN Reason: Muscle Spasm Clopidogrel [Plavix] 75 mg PO DAILY Sertraline [Zoloft] 150 mg PO DAILY Albuterol Sulfate [Ventolin Hfa] 2 inh IH Q6HR PRN PRN Reason: Shortness Of Breath Insulin Degludec [Tresiba Flextouch U-200] 10 unit SQ HS Dapagliflozin Propanediol [Farxiga] 5 mg PO DAILY Aspirin 81 mg PO DAILY #30 tab.chew glipiZIDE [Glipizide] 10 mg PO BID Amlodipine Besylate 2.5 mg PO DAILY Ferrous Sulfate [Iron] 325 mg PO HS Omeprazole [PriLOSEC] 20 mg PO BID Ramipril 10 mg PO DAILY Zinc Acetate [Galzin] 50 mg PO DAILY Home Medications: Metoprolol XL (24 HR) Succ [Toprol Xl] 25 mg PO DAILY 04/22/15 [History] Multivits,Ca,Min/Iron/FA/Lycop [Centrum Men's Tablet] 1 tab PO DAILY 04/22/15 [History] Pioglitazone [Actos] 45 mg PO DAILY 04/22/15 [History] Tizanidine HCl 4 mg PO HS PRN 04/22/15 [History] metFORMIN [Glucophage] 1,000 mg PO BID 04/22/15 [History] Clopidogrel [Plavix] 75 mg PO DAILY 09/29/17 [History] Sertraline [Zoloft] 150 mg PO DAILY 09/29/17 [History] Albuterol Sulfate [Ventolin Hfa] 2 inh IH Q6HR PRN 12/12/17 [History] Dapagliflozin Propanediol [Farxiga] 5 mg PO DAILY 12/12/17 [History] Insulin Degludec [Tresiba Flextouch U-200] 10 unit SQ HS 12/12/17 [History] Aspirin 81 mg PO DAILY #30 tab.chew 01/17/18 [Rx] glipiZIDE [Glipizide] 10 mg PO BID 04/12/18 [History] Amlodipine Besylate 2.5 mg PO DAILY 06/27/18 [History] Ferrous Sulfate [Iron] 325 mg PO HS 06/27/18 [History] Omeprazole [PriLOSEC] 20 mg PO BID 06/27/18 [History] Ramipril 10 mg PO DAILY 06/27/18 [History] Zinc Acetate [Galzin] 50 mg PO DAILY 06/27/18 [History] Azithromycin [Zithromax] 500 mg PO DAILY #6 tablet 06/30/18 [Rx] Cefdinir [Omnicef] 300 mg PO BID #8 capsule 06/30/18 [Rx] Allergies/Adverse Reactions: Allergy/AdvReac Type Severity Reaction Status Date / Time atorvastatin [From Lipitor] AdvReac Muscle Pain Verified 06/27/18 21:46 rosuvastatin [From Crestor] AdvReac Muscle Pain Verified 06/27/18 21:46 simvastatin AdvReac Muscle Pain Verified 06/27/18 21:46 Date of admission: 06/28/18 16:10 Primary care physician: Lydia Gray CNP Consults: 06/28/18 09:03 Consult to Nurse Navigator [CONS] Routine Comment: pneumonia Discharging clinician: Sindy Michel Anticipated date of discharge: 06/30/18 - Constitutional Vitals: Temp Pulse Resp BP Pulse Ox 98.1 F 98 18 145/70 96 06/30/18 07:35 06/30/18 07:35 06/30/18 07:50 06/30/18 07:35 06/30/18 07:50 General appearance: Present: cooperative, A&O X 3, pleasant, no acute distress, obese Exam: . - Respiratory Respiratory exam: Present: CTAB. Absent: accessory muscle use, rales, rhonchi, wheezes - Cardiovascular Cardiovascular exam: Present: RRR, +S1, +S2. Absent: diastolic murmur, gallop, rubs, systolic murmur - GI/Abdominal GI/Abdominal exam: Present: normal bowel sounds, soft, no peritoneal signs. Absent: distended, tenderness - Patient Status Disposition: Home, Self-Care Condition: Good Functional capacity at discharge: independent ambulation Overall status at discharge: patient is progressing back to baseline - Discharge Instructions Instructions: Pneumonia (DC), Diabetes Mellitus Type 2 in Adults (DC), Chronic Hypertension (DC) Follow Up With: Lydia Gray, [facility] [Primary Care Provider] - (in 1-2weeks) - Diet and Activity Activity: increase activity as tolerated Diet: diabetic diet, low fat, low cholesterol, low salt diet
== END 2018-06-30 12:08 | disposition home or self-care (01) | DRG 871 ==
LOC: EMEROOARM 16:25 → 2NNU 16:25 → SUATTDRO 06-28 16:10
PROVIDERS: ADMIT Internal Medicine; ATTEND Internal Medicine

== ENCOUNTER 2018-11-07 15:34 | Observation (INO) ==
[2018-11-07] MEDS ORDERED: 0.9 % Sodium Chloride 1,000 ML IVC ONE (15:43)
[2018-11-07] MEDS ORDERED: Isovue-370 500 ML BOTTLE IVP ONE (16:09)
--- NOTE | 2018-11-07 16:15 | Emergency Department Note ---
Disposition Clinical Impression: Symptomatic anemia GI bleed Qualifiers: GI bleed type/associated pathology: melena Qualified Code(s): K92.1 - Melena Disposition: Admitted As Inpatient Condition: Good Forms: ED Satisfaction Letter Time of Disposition: 20:08 General Adult HPI - General Chief complaint: ED Recheck/Abnormal Lab/Rx Stated complaint: Low hemoglobin Time Seen by Provider: 11/07/18 15:42 Source: patient, family Mode of arrival: ambulatory Limitations: no limitations Nursing Notes Reviewed: Yes Vital Signs Reviewed: Yes - History of Present Illness HPI Narrative: 68 bryan old male presents to the ED with complaints of low hgb. States that the last time he was infused was in may and state that he is currently being worked up for iron defecient anemia and GI bleed per Dr. Richardson. He has otehrwie had a EGD and colonoscpy that found polyps but not a true source for his bleed and is having black stools without blood and states taht he was on iron supplements. PAtient states on Monday of last week he was on a trip to [place] and went to a buffect and a bowl of stewed DTTa soup and then proceede to have increased abodminal pain and rectal bleeidng that night which has otherwise subsided. Jabari statse that he thinks that might have been the source of his bleeidng then and thinks that perhaps he might have diverticulitis. Jabari denies any abomdinal pain at this time and denies chest pain as well No nausea or vomitting. And states that he is still having black stools without blood. Pain Scale: 0 - Related Data Home Medications Medication Instructions Recorded Confirmed Multivits,Ca,Min/Iron/FA/Lycop 1 tab PO DAILY 04/22/15 09/10/18 [Centrum Men's Tablet] Pioglitazone [Actos] 45 mg PO DAILY 04/22/15 09/10/18 Tizanidine HCl 4 mg PO HS PRN 04/22/15 09/10/18 metFORMIN [Glucophage] 1,000 mg PO BID 04/22/15 09/10/18 Clopidogrel [Plavix] 75 mg PO DAILY 09/29/17 09/10/18 Sertraline [Zoloft] 150 mg PO DAILY 09/29/17 09/10/18 Albuterol Sulfate [Ventolin Hfa] 2 inh IH Q6HR PRN 12/12/17 09/10/18 Dapagliflozin Propanediol [Farxiga] 5 mg PO DAILY 12/12/17 09/10/18 Insulin Degludec [Tresiba 10 unit SQ HS 12/12/17 09/10/18 Flextouch U-200] glipiZIDE [Glipizide] 10 mg PO BID 04/12/18 09/10/18 Amlodipine Besylate 2.5 mg PO DAILY 06/27/18 09/10/18 Omeprazole [PriLOSEC] 20 mg PO DAILY 06/27/18 09/10/18 Ramipril 10 mg PO DAILY 06/27/18 09/10/18 Zinc Acetate [Galzin] 50 mg PO DAILY 06/27/18 09/10/18 Sodium Chloride/Sodium Bicarb 2 spray NS TID PRN 07/09/18 09/10/18 [Nasa Mist Saline [place]] Previous Rx's Medication Instructions Recorded Aspirin 81 mg PO DAILY #30 tab.chew 01/17/18 Ferrous Sulfate [Iron] 325 mg PO DAILY #30 tablet 07/11/18 Allergies Allergy/AdvReac Type Severity Reaction Status Date / Time atorvastatin [From Lipitor] AdvReac Muscle Pain Verified 11/07/18 15:37 rosuvastatin [From Crestor] AdvReac Muscle Pain Verified 11/07/18 15:37 simvastatin AdvReac Muscle Pain Verified 11/07/18 15:37 All systems ED: reviewed and negative except as stated. Review of Systems: As Per HPI Constitutional: Denies: fever, chills, weakness, weight change Eyes: Denies: eye pain, eye discharge, vision change ENT ED: Denies: ear pain, throat pain, dental pain, hearing loss, epistaxis, congestion, dysphagia Cardiovascular: Denies: chest pain, palpitations, dyspnea on exertion, edema, syncope Respiratory: Denies: cough, dyspnea, wheezes, hemoptysis, stridor Gastrointestinal: Reports: as per HPI, melena. Denies: abdominal pain, nausea, vomiting, diarrhea, constipation, hematemesis, hematochezia Genitourinary: Denies: urgency, dysuria, frequency, hematuria Musculoskeletal: Denies: back pain, neck pain, arthralgia, myalgia Integumentary: Denies: rash, abrasion, lesions Neurological: Denies: headache, weakness, numbness, paresthesias, confusion, abnormal gait, vertigo Psychiatric: Denies: anxiety, depression, suicidal thoughts, homicidal thoughts, auditory hallucinations, visual hallucinations Endocrine: Denies: fatigue Hematological/Lymphatic: Denies: easy bleeding, easy bruising Allergic/Immunologic: Denies: facial swelling, urticaria Past Medical History - Past Medical History Medical history: Reports: coronary artery disease, diabetes, GERD, hyperlipidemia Surgical history: Reports: angioplasty/stent, appendectomy, cholecystectomy, knee replacement, sinus surgery, tonsillectomy, other Psychiatric history: Reports: depression - Social History Smoking Status: Current every day smoker Smokeless Tobacco Status: No Alcohol use: Reports: rarely Drug use: Reports: none Physical Exam - General Limitations: no limitations General appearance: alert, in no apparent distress - Head Head exam: atraumatic, normocephalic, normal inspection - Eye Eye exam: Present: normal appearance, PERRL, EOMI - Expanded Eye Exam Pupils: Left: reactive - ENT ENT exam: normal exam, normal oropharynx, mucous membranes moist - Expanded ENT Exam External ear exam: Present: normal external inspection Mouth exam: Present: normal external inspection Teeth exam: Present: normal inspection Throat exam: Present: normal inspection - Neck Neck exam: Present: normal inspection, full ROM, trachea midline - Chest Chest inspection: Present: normal inspection, symmetric chest wall rise - Respiratory Respiratory exam: Present: normal lung sounds bilaterally - Cardiovascular Cardiovascular exam: Present: normal rhythm, tachycardia, normal heart sounds - Abdominal Exam Abdominal exam: Present: soft, Non-Tender. Absent: tenderness, distention, guarding, rebound, rigidity - Extremities Exam Extremities exam: Present: normal inspection, full ROM. Absent: tenderness, pedal edema - Expanded Upper Extremity Exam Shoulder exam: Present: normal inspection, full ROM Arm exam: Present: normal inspection, full ROM Elbow exam: Present: normal inspection, full ROM Forearm/Wrist exam: Present: normal inspection, full ROM Hand exam: Present: normal inspection, full ROM Vascular exam: Normal: capillary refill, radial pulse - Expanded Lower Extremity Exam Hip/Pelvis exam: Present: normal inspection, full ROM Upper leg exam: Present: normal inspection, full ROM Knee exam: Present: normal inspection, full ROM Lower leg exam: Present: normal inspection, full ROM Ankle exam: Present: normal inspection, full ROM Foot/toe exam: Present: normal inspection, full ROM Neurovascular/Tendon exam: Absent: motor deficit, sensory deficit, tendon deficit - Back Exam Back exam: Present: normal inspection, full ROM. Absent: tenderness - Neurological Exam Neurological exam: Present: alert, oriented X3 - Expanded Neurological Exam Patient oriented to: Present: person, place, time Coma Scale Eye Opening: Spontaneous Coma Scale Motor Response: Obeys Commands Coma Scale Verbal Response: Oriented Coma Scale Total: 15 - Psychiatric Psychiatric exam: Present: normal affect, normal mood - Skin Skin exam: Present: warm, dry, intact, normal color Course Course Narrative: I will do a fecal hemmoccult and GI bleed workup. Patient has two units ordered and will thus be admitteed to medicine for symptomatic anemia and GI bleed. He is tachycardiac and I will treat with blood and IVF. CT scan pending. - Consultations Consultation #1: discussed case with Dr. Bush and he accepts patinet to his service. Time: 20:08 Vital Signs Temperature 98.1 F 11/07/18 15:37 Pulse Rate 125 11/07/18 15:37 Respiratory Rate 18 11/07/18 15:37 Blood Pressure 138/67 11/07/18 15:37 O2 Sat by Pulse Oximetry 99 11/07/18 15:37 Temperature 98.6 F 11/07/18 18:04 Pulse Rate 101 11/07/18 18:04 Respiratory Rate 16 11/07/18 18:04 Blood Pressure 121/67 11/07/18 18:04 O2 Sat by Pulse Oximetry 99 11/07/18 15:43 Oxygen Delivery Oxygen Delivery Room Air Medical Decision Making - Medical Records Medical records reviewed: Yes I reviewed the patient's medical records. - Lab Data Lab results reviewed: Yes I reviewed the patient's lab results. Result diagrams: 11/07/18 16:11 11/07/18 16:11 Lab Results 11/07/18 11/07/18 11/07/18 Range/Units 16:06 16:11 16:11 WBC 8.7 (4.3-11.1) K/mcL RBC 2.47 L (4.19-5.50) M/mcL Hgb 6.7 L (12.9-16.9) g/dL Hct 22.2 L (37.5-50.1) % MCV 89.9 (83.0-100.0) fL MCH 27.1 L (28.0-33.3) pg MCHC 30.2 L (31.6-35.5) g/dL RDW 19.0 H (11.5-14.5) % Plt Count 291 (140-400) K/mcL MPV 10.1 (9.4-12.4) fL Immature Gran % 0.7 (0-4) % Seg Neutrophils % 65.5 % Lymphocytes % 22.7 % Monocytes % 9.5 % Eosinophils % 1.4 % Basophils % 0.2 % Neutrophils # 5.7 (1.6-8.9) K/mcL Lymphocytes # 2.0 (0.6-4.6) K/mcL Monocytes # 0.8 (0.0-1.3) K/mcL Eosinophils # 0.1 (0.0-0.6) K/mcL Basophils # 0.0 (0.0-0.2) K/mcL Nucleated RBCs/100 WBC 0.2 H (0) /100 WBC PT 11.2 (9.4-12.1) Seconds INR 1.0 APTT 32.6 (26.0-36.0) Seconds Sodium (136-145) mEq/L Potassium (3.5-5.1) mEq/L Chloride (98-107) mEq/L Carbon Dioxide (23-29) mEq/L BUN (8-23) mg/dL Creatinine (0.70-1.30) mg/dL Est GFR ( Amer) (> 60) Est GFR (Non-Af Amer) (> 60) BUN/Creatinine Ratio (6-26) Glucose (70-105) mg/dL Calculated Osmolality (280-300) Lactic Acid (0.5-2.2) mmol/L Calcium (8.6-10.3) mg/dL Total Bilirubin (0.3-1.0) mg/dL AST (13-39) Units/L ALT (7-52) Units/L Alkaline Phosphatase (34-104) Units/L Troponin I (< 0.04) ng/mL Serum Total Protein (6.4-8.9) g/dL Albumin (3.5-5.7) g/dL Globulin (2.4-3.5) g/dL Albumin/Globulin Ratio (1.1-2.2) Lipase (11-82) Units/L Stool Occult Bld Scrn Positive A (Negative) Blood Type Antibody Screen Crossmatch 11/07/18 11/07/18 11/07/18 Range/Units 16:11 16:11 16:11 WBC (4.3-11.1) K/mcL RBC (4.19-5.50) M/mcL Hgb (12.9-16.9) g/dL Hct (37.5-50.1) % MCV (83.0-100.0) fL MCH (28.0-33.3) pg MCHC (31.6-35.5) g/dL RDW (11.5-14.5) % Plt Count (140-400) K/mcL MPV (9.4-12.4) fL Immature Gran % (0-4) % Seg Neutrophils % % Lymphocytes % % Monocytes % % Eosinophils % % Basophils % % Neutrophils # (1.6-8.9) K/mcL Lymphocytes # (0.6-4.6) K/mcL Monocytes # (0.0-1.3) K/mcL Eosinophils # (0.0-0.6) K/mcL Basophils # (0.0-0.2) K/mcL Nucleated RBCs/100 WBC (0) /100 WBC PT (9.4-12.1) Seconds INR APTT (26.0-36.0) Seconds Sodium 131 L (136-145) mEq/L Potassium 3.8 (3.5-5.1) mEq/L Chloride 101 (98-107) mEq/L Carbon Dioxide 24 (23-29) mEq/L BUN 12 (8-23) mg/dL Creatinine 0.72 (0.70-1.30) mg/dL Est GFR ( Amer) > 60 (> 60) Est GFR (Non-Af Amer) > 60 (> 60) BUN/Creatinine Ratio 17 (6-26) Glucose 131 H (70-105) mg/dL Calculated Osmolality 274 L (280-300) Lactic Acid 1.0 (0.5-2.2) mmol/L Calcium 8.8 (8.6-10.3) mg/dL Total Bilirubin 0.2 L (0.3-1.0) mg/dL AST 12 L (13-39) Units/L ALT 16 (7-52) Units/L Alkaline Phosphatase 57 (34-104) Units/L Troponin I < 0.03 (< 0.04) ng/mL Serum Total Protein 6.6 (6.4-8.9) g/dL Albumin 4.1 (3.5-5.7) g/dL Globulin 2.5 (2.4-3.5) g/dL Albumin/Globulin Ratio 1.6 (1.1-2.2) Lipase 35 (11-82) Units/L Stool Occult Bld Scrn (Negative) Blood Type A POSITIVE Antibody Screen NEGATIVE Crossmatch See Detail - Radiology Data Radiology results reviewed: Yes I reviewed the patient's radiology results. - EKG Data EKG #1 EKG attestation: Yes I reviewed and interpreted this EKG. EKG results narrative: sinus tachycardia with rate of 122. NO STEMi. normal intervals. rate changed f rom 08/06/18. 1550
[2018-11-07 16:37] LABS: Basophils % 0.2 %; Eosinophils # 0.1 K/mcL (0.0-0.6); Eosinophils % 1.4 %; Hematocrit 22.2 % (37.5-50.1); Hemoglobin 6.7 g/dL (12.9-16.9); Immature Granulocytes % 0.7 % (0-4); Lymphocytes % 22.7 %; Mean Corpuscular HGB Conc 30.2 g/dL (31.6-35.5); Mean Corpuscular Hemoglobin 27.1 pg (28.0-33.3); Mean Corpuscular Volume 89.9 fL (83.0-100.0); Mean Platelet Volume 10.1 fL (9.4-12.4); Monocytes # 0.8 K/mcL (0.0-1.3); Monocytes % 9.5 %; Neutrophils # 5.7 K/mcL (1.6-8.9); Nucleated Red Blood Cells 0.2 /100 WBC (0); Platelet Count 291 K/mcL (140-400); Red Blood Count 2.47 M/mcL (4.19-5.50); Segmented Neutrophils % 65.5 %; White Blood Count 8.7 K/mcL (4.3-11.1)
[2018-11-07 16:44] LABS: Prothrombin Time 11.2 Seconds (9.4-12.1)
[2018-11-07 16:46] LABS: Activated Partial Thrombo Time 32.6 Seconds (26.0-36.0)
[2018-11-07 16:51] LABS: Alanine Aminotransferase 16 Units/L (7-52); Albumin 4.1 g/dL (3.5-5.7); Albumin/Globulin Ratio 1.6 (1.1-2.2); Alkaline Phosphatase 57 Units/L (34-104); Aspartate Amino Transferase 12 Units/L (13-39); BUN/Creatinine Ratio 17 (6-26); Bilirubin,Total 0.2 mg/dL (0.3-1.0); Blood Urea Nitrogen 12 mg/dL (8-23); Calcium 8.8 mg/dL (8.6-10.3); Carbon Dioxide 24 mEq/L (23-29); Chloride 101 mEq/L (98-107); Globulin 2.5 g/dL (2.4-3.5); Glucose 131 mg/dL (70-105); Lipase 35 Units/L (11-82); Osmolality,Calculated 274 (280-300); Potassium 3.8 mEq/L (3.5-5.1); Sodium 131 mEq/L (136-145); Total Protein 6.6 g/dL (6.4-8.9); Troponin I < 0.03 ng/mL (< 0.04); eGFR For African Americans > 60 (> 60); eGFR For Non-African Americans > 60 (> 60)
[2018-11-07] MEDS ORDERED: 0.9 % Sodium Chloride 250 ML ONE (21:24)
[2018-11-08] MEDS ORDERED: Dextrose Gel 15 GM/37.5 ML TUBE PO PRN ×2 (01:36)
[2018-11-08] MEDS ORDERED: *HR* Dextrose 50 % in Water (Syg) 50 ML SYRINGE IVP PRN (01:36)
[2018-11-08] MEDS ORDERED: D5% in Water 1,000 ML IVC PRN (01:36)
--- NOTE | 2018-11-08 01:38 | Internal Med History&Physical ---
Date of Encounter: 11/08/18 Time of Encounter: 01:38 Internal Medicine - H&P: HPI Chief complaint: Anemia History of present illness: Mr. Rainey is a 68 year old male with past medical history significant for CAD with 8 stents (last stent placement Fall 2017), hyperlipidemia, COPD, sleep apnea with CPAP, chronic anemia, diabetes, GERD, and depression who presents to the ED due to concern of low hemoglobin and recent episodes of GI bleed. Patient was contacted by his shaft tender office today to inform him that his hemoglobin levels were low and to come into the hospital. Patient reports that last week he had several episodes of bright red blood per rectum over the course of 3 days, the last episode of which occurred on Monday. Patient is currently on aspirin and Plavix. Patient has a history of diverticulosis and diverticulitis and was concerned that me may have developed diverticulitis again. Patient reports feeling fatigued and lightheaded over the past few days. Denies any chest pain or shortness of breath. Patient states he has had workup for his anemia and for GI bleed and currently follows with Dr. Richardson. He states that he has a planned outpatient pill endoscopy scheduled for mid November. On arrival patient was afebrile, hemodynamically stable. Laboratory workup notable for a hemoglobin of 6.7. Fecal occult blood testing was positive. Patient transfused 2 units of packed red blood cells. Past Med Surg Social Fam HX - Past Medical History Medical history: coronary artery disease, diabetes, GERD, hyperlipidemia Additional medical history: sleep apnea, glaucoma, BPH, Psychiatric history: depression - Past Surgical History Surgical History: angioplasty/stent, appendectomy, cholecystectomy, knee replacement, sinus surgery, tonsillectomy, other Additional surgical history: 8 cardiac stents (2017) - Social History Smoking Status: Current every day smoker Packs per day: 1 Smokeless Tobacco Status: No Alcohol use: rarely Drug use: none - Family History Father Hx Family Cardiac Disorders: Yes Internal Medicine - H&P: Meds Multivits,Ca,Min/Iron/FA/Lycop [Centrum Men's Tablet] 1 tab PO DAILY 04/22/15 [History] Pioglitazone [Actos] 45 mg PO DAILY 04/22/15 [History] Tizanidine HCl 4 mg PO HS PRN 04/22/15 [History] metFORMIN [Glucophage] 1,000 mg PO BID 04/22/15 [History] Clopidogrel [Plavix] 75 mg PO DAILY 09/29/17 [History] Sertraline [Zoloft] 150 mg PO DAILY 09/29/17 [History] Albuterol Sulfate [Ventolin Hfa] 2 inh IH Q6HR PRN 12/12/17 [History] Dapagliflozin Propanediol [Farxiga] 5 mg PO DAILY 12/12/17 [History] Insulin Degludec [Tresiba Flextouch U-200] 10 unit SQ HS 12/12/17 [History] Aspirin 81 mg PO DAILY #30 tab.chew 01/17/18 [Rx] glipiZIDE [Glipizide] 10 mg PO BID 04/12/18 [History] Amlodipine Besylate 2.5 mg PO DAILY 06/27/18 [History] Omeprazole [PriLOSEC] 20 mg PO DAILY 06/27/18 [History] Ramipril 10 mg PO DAILY 06/27/18 [History] Sodium Chloride/Sodium Bicarb [Nasa Mist Saline [place]] 2 spray NS TID PRN 07/09/18 [History] Ferrous Sulfate [Iron] 325 mg PO DAILY #30 tablet 07/11/18 [Rx] Allergy/AdvReac Type Severity Reaction Status Date / Time atorvastatin [From Lipitor] AdvReac Muscle Pain Verified 11/07/18 15:37 rosuvastatin [From Crestor] AdvReac Muscle Pain Verified 11/07/18 15:37 simvastatin AdvReac Muscle Pain Verified 11/07/18 15:37 All Systems PM: A 10-system review of systems was performed and is negative for pertinent findings except as documented above in the HPI. - Constitutional Constitutional: no chills, no fever(s), no night sweats - EENT Eyes: no change in vision, no discharge, no pain, no photophobia Ears: no ear discharge, no ear pain, no tinnitus Nose, mouth and throat: no dysphagia, no nasal discharge, no neck pain, no sore throat - Cardiovascular Cardiovascular ROS IM: no chest pain, no diaphoresis, no dyspnea, no lightheadedness, no palpitations, no syncope - Respiratory Respiratory: no cough, no dyspnea, no wheezing, no excessive phlegm production - Gastrointestinal Gastrointestinal: no abdominal pain, no diarrhea, no hematemesis, no hematochezia, no melena, no nausea, no vomiting - Musculoskeletal Musculoskeletal ROS IM: no numbness, no tingling - Integumentary Integumentary IM: no rash, no unusual bruising - Neurological Neurological ROS: no confusion, no convulsions, no focal weakness, no numbness, no tingling, no tremor(s) - Hematologic/Lymphatic Hematologic/Lymphatic: no easy bruising - Constitutional Vitals: Temp Pulse Resp BP Pulse Ox 98.6 F 97 17 131/67 97 11/07/18 22:59 11/07/18 22:59 11/07/18 22:59 11/07/18 22:59 11/07/18 22:59 Exam: General: Alert and oriented 3 lying in bed in no acute distress Skin:Normal color, no rash, no lesions. HEENT:EOM, pupils equal, round and reactive. Cardiovascular:Normal S1 & S2, no rubs, murmurs or gallops. No JVD. Pulse r egular. Lungs:Normal breath sounds, no wheezes or crackles. Abdomen:Soft, non-tender, no rigidity. Extremities:No deformity, no edema or tenderness, no joint swelling or clubbing. Neurological:Normal cognition and motor skills. Pulses:Carotid and radial pulses normal +2. Rest of the physical exam is non contributory Internal Med - H&P Results - Labs CBC & Chem 7: 11/08/18 02:06 11/08/18 02:06 Labs: Short CBC 11/07/18 Range/Units 16:11 WBC 8.7 (4.3-11.1) K/mcL Hgb 6.7 L (12.9-16.9) g/dL Hct 22.2 L (37.5-50.1) % Plt Count 291 (140-400) K/mcL Neutrophils # 5.7 (1.6-8.9) K/mcL BMP 11/07/18 16:11 Sodium 131 L Potassium 3.8 Chloride 101 Carbon Dioxide 24 BUN 12 Creatinine 0.72 Glucose 131 H Calcium 8.8 Cardiac Enzymes 11/07/18 Range/Units 16:11 Troponin I < 0.03 (< 0.04) ng/mL Liver Function 11/07/18 Range/Units 16:11 Total Bilirubin 0.2 L (0.3-1.0) mg/dL AST 12 L (13-39) Units/L ALT 16 (7-52) Units/L Alkaline Phosphatase 57 (34-104) Units/L Albumin 4.1 (3.5-5.7) g/dL - Impressions ITS Impressions Chest X-Ray 11/07/18 15:43 IMPRESSION: Mild cardiomegaly. No acute cardiopulmonary process. D/ / 11/07/2018 16:06:29 Mukesh Jain MD / earnold Interpreting Provider: Mukesh Jain MD Abdomen/Pelvis CT 11/07/18 18:00 IMPRESSION: 1. Evaluation for gastrointestinal tract bleed is severely limited due to presence of oral contrast. 2. No acute intra-abdominal or intrapelvic abnormality. 3. The urinary bladder is moderately distended. If the patient is unable to void, then Mares catheter insertion is recommended. 4. Colonic diverticulosis without acute inflammatory changes. 5. Prostate gland enlargement. Correlation with PSA recommended. 6. Incidental note made of left adrenal gland adenoma. 7. Right lower lobe subpleural opacity may represent atelectasis or residual infiltrate, improved compared to 06/28/2018. D/ / 11/07/2018 19:59:32 Geronimo Leonardo MD / bcarter Interpreting Provider: Geronimo Leonardo MD - Assessment and Plan (1) Symptomatic anemia Current Visit: Yes Status: Acute Assessment and plan: Patient presenting with a hemoglobin of 6.7 likely secondary to GI losses. Patient has a history of chronic anemia due to iron deficiency from chronic GI blood loss. Patient followed by Dr. Richardson. Patient has a history of intolerance to oral iron therapy and has been receiving multiple IV iron infusions the last of which was earlier this year. -Status post 2 units of packed red blood cells -Trend H&H (2) GI bleed Current Visit: Yes Status: Acute Assessment and plan: History of GI bleed in the setting of diverticulosis. Patient has had outpatient workup including both upper and lower endoscopy in September 2017. Pill endoscopy planned for mid November. -Consult to GI placed. Patient has been kept nothing by mouth in the event he would require endoscopy. However would recommend reaching out to GI to discuss current management in light of his upcoming colonoscopy. Qualifiers: GI bleed type/associated pathology: melena Qualified Code(s): K92.1 - Melena (3) CAD (coronary artery disease) Current Visit: No Status: Acute Assessment and plan: History of CAD. Continue medical management. Qualifiers: Coronary Disease-Associated Artery/Lesion type: [place] artery [place] vs. transplanted heart: [place] heart Associated angina: with stable angina Qualified Code(s): I25.118 - Atherosclerotic heart disease of [place] coronary artery with other forms of angina pectoris (4) Diabetes mellitus Current Visit: No Status: Acute Assessment and plan: Sliding scale insulin with blood glucose checks. 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
[2018-11-08 02:25] LABS: Basophils % 0.4 %; Eosinophils # 0.2 K/mcL (0.0-0.6); Eosinophils % 2.7 %; Hematocrit 26.1 % (37.5-50.1); Hemoglobin 8.2 g/dL (12.9-16.9); Immature Granulocytes % 0.4 % (0-4); Lymphocytes # 1.9 K/mcL (0.6-4.6); Lymphocytes % 25.5 %; Mean Corpuscular HGB Conc 31.4 g/dL (31.6-35.5); Mean Corpuscular Hemoglobin 28.1 pg (28.0-33.3); Mean Corpuscular Volume 89.4 fL (83.0-100.0); Monocytes # 1.1 K/mcL (0.0-1.3); Monocytes % 14.5 %; Neutrophils # 4.2 K/mcL (1.6-8.9); Nucleated Red Blood Cells 0.4 /100 WBC (0); Platelet Count 277 K/mcL (140-400); Red Blood Count 2.92 M/mcL (4.19-5.50); Red Cell Distribution Width 17.6 % (11.5-14.5); Segmented Neutrophils % 56.5 %; White Blood Count 7.4 K/mcL (4.3-11.1)
[2018-11-08 02:40] LABS: Alanine Aminotransferase 14 Units/L (7-52); Albumin 3.7 g/dL (3.5-5.7); Albumin/Globulin Ratio 1.5 (1.1-2.2); Alkaline Phosphatase 54 Units/L (34-104); Aspartate Amino Transferase 9 Units/L (13-39); BUN/Creatinine Ratio 14 (6-26); Bilirubin,Total 0.5 mg/dL (0.3-1.0); Blood Urea Nitrogen 10 mg/dL (8-23); Calcium 8.8 mg/dL (8.6-10.3); Carbon Dioxide 25 mEq/L (23-29); Chloride 106 mEq/L (98-107); Globulin 2.4 g/dL (2.4-3.5); Glucose 224 mg/dL (70-105); Osmolality,Calculated 290 (280-300); Potassium 4.1 mEq/L (3.5-5.1); Sodium 137 mEq/L (136-145); Total Protein 6.1 g/dL (6.4-8.9); eGFR For African Americans > 60 (> 60); eGFR For Non-African Americans > 60 (> 60)
[2018-11-08] MEDS: Pantoprazole 40 MG VIAL IVP SCH ×2 (03:12→11:50)
[2018-11-08] MEDS: Insulin LISPRO 300 UNITS/3 ML VIAL SQ SCH ×3 (05:49→17:43)
--- NOTE | 2018-11-08 09:07 | Gastroenterology Consult Note ---
<MedinaEllaJuan Antonio C - Last Filed: 11/08/18 14:12> Date of Encounter: 11/08/18 Time of Encounter: 09:07 - Assessment and plan (1) Anemia Status: Acute Assessment and plan: Patient was known history of chronic iron deficiency anemia and GI bleed Recently seen outpatient and scheduled for capsule endoscopy Had several days of blood per rectum last week, now having dark stools Outpatient labs significant for anemia, reported to ED Admitted and transfused, hemoglobin now stable at 8.2 Patient has no current acute complaints, no abdominal pain/nausea/vomiting Stool occult blood positive, abdomen/pelvis CTA negative for bleeding Study was limited by oral contrast, bladder distention and incidental adrenal adenoma noted Patient will likely require upper and lower endoscopy Unlikely to occur today, will order clear liquids and bowel prep this evening, nothing by mouth at midnight Further recommendations per Dr. Richardson Qualifiers: Anemia type: iron deficiency Iron deficiency anemia type: chronic blood loss Qualified Code(s): D50.0 - Iron deficiency anemia secondary to blood loss (chronic) (2) GI bleed Status: Acute Qualifiers: GI bleed type/associated pathology: melena Qualified Code(s): K92.1 - Melena - Time Spent With Patient Total time spent is greater than 50% in coordination of care (as documented) at patient's floor/unit and/or counseling patient: GI History of Present Illness - Data of Consult Patient: known to practice within the last 3 years Consult date: 11/08/18 Requesting Physician: Jethro Mccauley - Consult Narrative Reason for consult: Anemia, GI bleed History of present illness: Mr. Rainey is a 68 year old male with past medical history of coronary artery disease status post stents, diabetes, hyperlipidemia, COPD, RASHAAD, anemia, GERD, GI bleed. He is a patient well known to the gastroenterology office for previous GI bleeding episodes. He is most recently seen in the office last week. Patient reports traveling to [place] last week, he was at a casino and began having bright red blood per rectum with bowel movements, this lasted several days and led to fatigue and weakness. On returning he presented to the outpatient lab data labs drawn for his chronic iron deficiency anemia. Lab called him and told him and his hemoglobin and iron were low and recommended he reports emergency department. On reporting to emergency department his hemoglobin was noted to be 6.7, he was admitted to the hospitalist service for management and gastroenterology consultation was requested for evaluation. On review of records and on evaluation of the patient he apparently has had upper and lower scopes performed within last year by Dr. roblero. Per records he does have capsule endoscopy scheduled for next week by Dr. Richardson. He did receive blood transfusion, and repeat hemoglobin this morning is 8.2, fecal occult blood testing positive. Otherwise the patient's only current complaint is a mild headache and tobacco craving. I informed him he would likely need endoscopy or colonoscopy or both, he stated he understood and agreed with the plan of care. Past Med Surg Social Fam HX - Past Medical History Medical history: coronary artery disease, diabetes, GERD, hyperlipidemia Additional medical history: sleep apnea, glaucoma, BPH, Psychiatric history: depression - Past Surgical History Surgical History: angioplasty/stent, appendectomy, cholecystectomy, knee replacement, sinus surgery, tonsillectomy, other Additional surgical history: 8 cardiac stents (2018) - Social History Smoking Status: Current every day smoker Packs per day: 1 Smokeless Tobacco Status: No Alcohol use: rarely Drug use: none - Family History Father Hx Family Cardiac Disorders: Yes All systems PM: reviewed and no additional remarkable complaints except as stated - Constitutional Vitals: Temp Pulse Resp BP Pulse Ox 97.8 F 105 17 136/71 98 11/08/18 07:05 11/08/18 07:05 11/08/18 07:05 11/08/18 07:05 11/08/18 07:05 General appearance: Present: A&O X 3, no acute distress, answers questions appropriately - Eye Eye exam: Present: EOMI, PERRL - Respiratory Respiratory exam: Present: CTAB - Cardiovascular Cardiovascular exam: Present: RRR - GI/Abdominal GI/Abdominal exam: Present: normal bowel sounds, soft, no peritoneal signs. Absent: distended, guarding, rigid, tenderness - Extremities Exam Extremities exam: Present: warm, radial pulses palpable and symmetrical - Skin Skin exam: Present: dry, warm Results - Labs CBC & Chem 7: 11/08/18 02:06 11/08/18 02:06 Labs: Last Result 11/08/18 02:06 Calcium 8.8 Entire Visit 11/08/18 11/08/18 02:06 02:06 Hgb 8.2 L D Hct 26.1 L Total Bilirubin 0.5 AST 9 L ALT 14 - ABG ABG results: PT/INR, D-dimer PT 11.2 Seconds (9.4-12.1) 11/07/18 16:11 - Impressions Impressions Chest X-Ray 11/07/18 15:43 IMPRESSION: Mild cardiomegaly. No acute cardiopulmonary process. D/ / 11/07/2018 16:06:29 Mukesh Jain MD / earnold Interpreting Provider: Mukesh Jain MD Abdomen/Pelvis CTA 11/07/18 18:00 IMPRESSION: 1. Evaluation for gastrointestinal tract bleed is severely limited due to presence of oral contrast. 2. No acute intra-abdominal or intrapelvic abnormality. 3. The urinary bladder is moderately distended. If the patient is unable to void, then Mares catheter insertion is recommended. 4. Colonic diverticulosis without acute inflammatory changes. 5. Prostate gland enlargement. Correlation with PSA recommended. 6. Incidental note made of left adrenal gland adenoma. 7. Right lower lobe subpleural opacity may represent atelectasis or residual infiltrate, improved compared to 06/28/2018. D/ / 11/07/2018 19:59:32 Geronimo Leonardo MD / [email or web address] Interpreting Provider: Geronimo Leonardo MD Consult Discharge Plan - Plan Instructions: Anemia (GEN) Referrals: Arian Richardson MD [Partnered Physician] - 11/13/18 10:00 am Lydia Gray CNP [Primary Care Provider] - <Arian Richardson - Last Filed: 11/19/18 03:38> Date of Encounter: 11/08/18 - Time Spent With Patient Total time spent is greater than 50% in coordination of care (as documented) at patient's floor/unit and/or counseling patient: GI History of Present Illness - Data of Consult Requesting Physician: Enovwo E Ohwofahworaye - Consult Narrative History of present illness: Mr. Rainey is a 68 year old male with multiple comoribidities - coronary artery disease status post stents, diabetes, hyperlipidemia, COPD, RASHAAD, anemia, GERD, GI bleed. He is a patient well known to the gastroenterology office for previous GI bleeding episodes. Delio review all his old records and make a decision regarding endoscopy this admission. He will be on clear liquids in the interim I examined this patient and my medical decision-making was reviewed with the Resident Physician. I agree with the documented findings, disposition and treatment plan as described except to the extent set forth below. - Constitutional Vitals: Temp Pulse Resp BP Pulse Ox 97.9 F 87 18 120/64 97 11/09/18 09:41 11/09/18 09:41 11/09/18 09:41 11/09/18 09:41 11/09/18 09:41 Results - Labs CBC & Chem 7: 11/09/18 03:55 11/09/18 03:55 - ABG ABG results: PT/INR, D-dimer PT 11.2 Seconds (9.4-12.1) 11/07/18 16:11
[2018-11-08] MEDS: Aspirin 81 MG TAB.CHEW PO SCH (09:19)
[2018-11-08] MEDS: Lisinopril 20 MG TABLET PO SCH (09:19)
--- NOTE | 2018-11-08 10:38 | Internal Med Progress Note ---
Hospitalist Progress Note - Encounter Date of Encounter: 11/08/18 Time of Encounter: 09:30 - Subjective Interval History: Mr. 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 Flores stated that she referred the patient to be admitted and has in the past treated patient with iron sucrose. He is scheduled for EGD colonoscopy tomorrow GEN: Denies fever, chills or malaise HEENT: Denies headache blurriness, or dysphagia RESP: Denies SOB or cough CV: Denies chest pain or palpitations GI: Denies Nausea, vomiting, diarrhea or constipation Reviewed current in hospital medications with modifications see orders Reviewed Routine labs - Exam Vitals: Temp Pulse Resp BP Pulse Ox 97.8 F 105 17 136/71 98 11/08/18 07:05 11/08/18 07:05 11/08/18 07:05 11/08/18 07:05 11/08/18 07:05 Exam: GEN: NAD, A&O x 3, Pleasant and conversant SKIN: Parcoal warm acyanotic not jaundice HEART: RRR, no murmurs LUNGS: CTA no wheeze or crackles, overall non labored ABDOMEN; Soft, non tender or distended, BS x 4 normactive EXT: No LE edema, Pedal pulses 1+, radial pulses 2+ PSYCH: Mood and affect is appropriate - Assessment and Plan (1) GI bleed Current Visit: Yes Status: Acute Assessment and Plan: Per conversation with his fence builder oncologist who has been treated in the past with IV iron sucrose this appears to be chronic for the patient. He is on Dual antiplatelet therapy which also increase his propensity for bleed by delaying the initial response clots plugged. Discussed with the GI team plan for EGD colonoscopy tomorrow (2) CAD (coronary artery disease) Current Visit: Yes Status: Acute Assessment and Plan: Presently denies chest pain continue medical management. (3) Diabetes mellitus Current Visit: Yes Status: Acute Assessment and Plan: A1c in the morning, continue insulin per protocol (4) Symptomatic anemia Current Visit: Yes Status: Acute Assessment and Plan: Patient presenting with a hemoglobin of 6.7 likely secondary to GI losses. Not improved to 8.2 after packed red blood cell. Patient has a history of chronic anemia due to iron deficiency from chronic GI blood loss. Patient followed by Dr. Richardson. Patient has a history of intolerance to oral iron therapy and has been receiving multiple IV iron infusions the last of which was earlier this year. -Status post 2 units of packed red blood cells -Trend H&H DVT Prophylaxis: SCDs due to his anemia - Time Spent with Patient Total time spent is greater than 50% in coordination of care (as documented) at patient's floor/unit and/or counseling patient: Internal Medicine: Result - Labs CBC & Chem 7: 11/08/18 02:06 11/08/18 02:06 Labs: Short CBC 11/07/18 11/08/18 Range/Units 16:11 02:06 WBC 8.7 7.4 (4.3-11.1) K/mcL Hgb 6.7 L 8.2 L D (12.9-16.9) g/dL Hct 22.2 L 26.1 L (37.5-50.1) % Plt Count 291 277 (140-400) K/mcL Neutrophils # 5.7 4.2 (1.6-8.9) K/mcL BMP 11/07/18 11/08/18 16:11 02:06 Sodium 131 L 137 Potassium 3.8 4.1 Chloride 101 106 Carbon Dioxide 24 25 BUN 12 10 Creatinine 0.72 0.70 Glucose 131 H 224 H Calcium 8.8 8.8 Cardiac Enzymes 11/07/18 Range/Units 16:11 Troponin I < 0.03 (< 0.04) ng/mL Liver Function 11/07/18 11/08/18 Range/Units 16:11 02:06 Total Bilirubin 0.2 L 0.5 (0.3-1.0) mg/dL AST 12 L 9 L (13-39) Units/L ALT 16 14 (7-52) Units/L Alkaline Phosphatase 57 54 (34-104) Units/L Albumin 4.1 3.7 (3.5-5.7) g/dL - ABG Interpretation ABG results: PT/INR, D-dimer PT 11.2 Seconds (9.4-12.1) 11/07/18 16:11 - Impressions Impressions Chest X-Ray 11/07/18 15:43 IMPRESSION: Mild cardiomegaly. No acute cardiopulmonary process. D/ / 11/07/2018 16:06:29 Mukesh Jain MD / earnold Interpreting Provider: Mukesh Jain MD Abdomen/Pelvis CTA 11/07/18 18:00 IMPRESSION: 1. Evaluation for gastrointestinal tract bleed is severely limited due to presence of oral contrast. 2. No acute intra-abdominal or intrapelvic abnormality. 3. The urinary bladder is moderately distended. If the patient is unable to void, then Mares catheter insertion is recommended. 4. Colonic diverticulosis without acute inflammatory changes. 5. Prostate gland enlargement. Correlation with PSA recommended. 6. Incidental note made of left adrenal gland adenoma. 7. Right lower lobe subpleural opacity may represent atelectasis or residual infiltrate, improved compared to 06/28/2018. D/ / 11/07/2018 19:59:32 Geronimo Leonardo MD / karin Interpreting Provider: Geronimo Leonardo MD Consult Discharge Plan - Plan Referrals: Lydia Gray, DRONE PILOT [Primary Care Provider] - (1) GI bleed Qualifiers: GI bleed type/associated pathology: melena Qualified Code(s): K92.1 - Melena (2) CAD (coronary artery disease) Qualifiers: Coronary Disease-Associated Artery/Lesion type: [place] artery [place] vs. 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
[2018-11-08] MEDS: Iron Sucrose Complex 200 MG in 0.9 % Sodium Chloride 100 ML IVPB SCH (11:50)
--- NOTE | 2018-11-08 14:22 | Electrocardiograph Report ---
[place] [id number] Test Date: 2018-11-07 Pat Name: Chavez Rainey Department: [id number] Room: 3A32 Gender: M [employer]ce [employer]: : 1950 Requested By: Melody Livingston Order Number: [id number] Reading MD: Alfredo Dukes Measurements Intervals [place] Rate: 122 P: 84 DE: 133 QRS: 93 QRSD: 89 T: 43 QT: 308 QTc: 439 Interpretive Statements Sinus tachycardia Right axis deviation Electronically Signed On 11-08-2018 14:20:55 EDT by Alfredo Dukes
--- NOTE | 2018-11-08 15:28 | Oncology Inp Consult Note ---
Date of Encounter: 11/08/18 Time of Encounter: 09:00 Assessment and Plan (1) Anemia Status: Acute Assessment and plan: GI bleeding, repeat GI procedure to be considered. Discussed with hospitalist. Anemia status post PRBC, intravenous iron, low ferritin noted. s/p IV iron in May and Rpt Hgb 8.2 (6.6) On aspirin and Plavix for coronary artery disease, need to be held with GI bleeding. F/U outpatient with me after discharge Qualifiers: Anemia type: iron deficiency Iron deficiency anemia type: chronic blood loss Qualified Code(s): D50.0 - Iron deficiency anemia secondary to blood loss (chronic) - Data of Consult Requesting Physician: Jethro Mccauley Primary Care Provider: Lydia Gray CNP - Consult Narrative Reason for consult: anemia History of present illness: 68-year-old male with medical history significant for coronary artery disease, diabetes mellitus, arthritis, hypertension, heart rhythm problems, anemia iron deficiency, 8-9 g since at least April 2017. He underwent upper GI endoscopy and colonoscopy in September 2017 colonoscopy status post polypectomy showed hyperplastic polyp, upper GI endoscopy showed esophageal ulceration. Patient received intravenous iron infusion in December 2017. Earlier this year, patient was noted to have low ferritin and received iron infusions 2 in May 2018, again in September 2018. Patient is upper extremity bruising from aspirin and Plavix. He reports that he was traveling in [place] when he noticed bleeding per rectum for the past 3-4 days. He was also fatigue and was asked to have lab works that showed a hemoglobin of 6.6. He is hospitalized for repeat GI workup, blood transfusion. Patient had also received intravenous iron infusion. He had a CT angiogram that did not show any active bleeding, or hematoma, diverticulosis. Past Med Surg Social Fam HX - Past Medical History Medical history: coronary artery disease, diabetes, GERD, hyperlipidemia Additional medical history: sleep apnea, glaucoma, BPH, Psychiatric history: depression - Past Surgical History Surgical History: angioplasty/stent, appendectomy, cholecystectomy, knee replacement, sinus surgery, tonsillectomy, other Additional surgical history: 8 cardiac stents (2018) - Social History Smoking Status: Current every day smoker Packs per day: 1 Smokeless Tobacco Status: No Alcohol use: rarely Drug use: none - Family History Father Hx Family Cardiac Disorders: Yes Medications and Allergies Multivits,Ca,Min/Iron/FA/Lycop [Centrum Men's Tablet] 1 tab PO DAILY 04/22/15 [History] Pioglitazone [Actos] 45 mg PO DAILY 04/22/15 [History] Tizanidine HCl 4 mg PO HS PRN 04/22/15 [History] metFORMIN [Glucophage] 1,000 mg PO BID 04/22/15 [History] Clopidogrel [Plavix] 75 mg PO DAILY 09/29/17 [History] Sertraline [Zoloft] 150 mg PO DAILY 09/29/17 [History] Albuterol Sulfate [Ventolin Hfa] 2 inh IH Q6HR PRN 12/12/17 [History] Dapagliflozin Propanediol [Farxiga] 5 mg PO DAILY 12/12/17 [History] Insulin Degludec [Tresiba Flextouch U-200] 10 unit SQ HS 12/12/17 [History] Aspirin 81 mg PO DAILY #30 tab.chew 01/17/18 [Rx] glipiZIDE [Glipizide] 10 mg PO BID 04/12/18 [History] Amlodipine Besylate 2.5 mg PO DAILY 06/27/18 [History] Omeprazole [PriLOSEC] 20 mg PO DAILY 06/27/18 [History] Ramipril 10 mg PO DAILY 06/27/18 [History] Sodium Chloride/Sodium Bicarb [Nasa Mist Saline [place]] 2 spray NS TID PRN 07/09/18 [History] Ferrous Sulfate [Iron] 325 mg PO DAILY #30 tablet 07/11/18 [Rx] Allergy/AdvReac Type Severity Reaction Status Date / Time atorvastatin [From Lipitor] AdvReac Muscle Pain Verified 11/07/18 15:37 rosuvastatin [From Crestor] AdvReac Muscle Pain Verified 11/07/18 15:37 simvastatin AdvReac Muscle Pain Verified 11/07/18 15:37 Constitutional: Present: fatigue Additional comments: no cp, palpitations Respiratory: Present: dyspnea on exertion Additional comments: denies abd pain. Rectal bleeding Musculoskeletal: Present: as per HPI Neurological: Present: as per HPI Additional comments: hx anemia Oncology - Exam - Constitutional General appearance: average body habitus - Head Head exam: Present: atraumatic, normal inspection - Eye Eye exam: Present: sclera anicteric - ENT ENT exam: Present: mucous membranes moist - Neck Neck exam: Present: full ROM - Respiratory Respiratory exam: Present: CTAB - Cardiovascular Cardiovascular exam: Present: +S1, +S2 - GI/Abdominal GI/Abdominal exam: Present: normal bowel sounds, soft - Extremities Exam Extremities exam: Present: normal inspection - Neurological Exam Neurological exam: Present: alert, CN II-XII intact, oriented X3, no focal deficits - Psychiatric Psychiatric exam: Present: normal affect - Skin Skin exam: Present: normal color Oncology Inpatient Results CBCD, CTA reviewed in HPI Consult Discharge Plan - Plan Referrals: Lydia Gray, EXTRACTOR OPERATOR [employer]ESS [Primary Care Provider] - Inpatient Charges Provider: Dr. Yue Lees Consult - Inpatient: [id number]
[2018-11-08] MEDS ORDERED: SODIUM CHLORIDE/NAHCO3/KCL/PEG 4,000 ML SOLN.RECON PO ONE (17:00)
--- NOTE | 2018-11-08 17:57 | Anesthesia Evaluation PreOp ---
Date of Encounter: 11/08/18 Time of Encounter: 18:03 - Past History Planned Operation: Colonoscopy Cardiac History: HTN, Hyperlipidemia, Cardiac Stent (x1 01/25 LONG to LAD, 7 cardiac stents 25 years ago), Other (EF 01/25 Cath 50%) Pulmonary History: Smoker, COPD, RASHAAD Dx Other Medical History: Diabetes Type II Anesthesia History: No Prior Anesthetic Complications, Past Anesthesia (tonsils, right TKA, sinus, appy, colonoscopy, egd) Alcohol Use: rarely Drug use: none Medications and Allergies Multivits,Ca,Min/Iron/FA/Lycop [Centrum Men's Tablet] 1 tab PO DAILY 04/22/15 [History] Pioglitazone [Actos] 45 mg PO DAILY 04/22/15 [History] metFORMIN [Glucophage] 1,000 mg PO BID 04/22/15 [History] Clopidogrel [Plavix] 75 mg PO DAILY 09/29/17 [History] Sertraline [Zoloft] 150 mg PO DAILY 09/29/17 [History] Albuterol Sulfate [Ventolin Hfa] 2 inh IH Q6HR PRN 12/12/17 [History] Dapagliflozin Propanediol [Farxiga] 10 mg PO DAILY 12/12/17 [History] Insulin Degludec [Tresiba Flextouch U-200] 10 unit SQ HS 12/12/17 [History] Aspirin 81 mg PO DAILY #30 tab.chew 01/17/18 [Rx] glipiZIDE [Glipizide] 10 mg PO BID 04/12/18 [History] Amlodipine Besylate 2.5 mg PO DAILY 06/27/18 [History] Omeprazole [PriLOSEC] 20 mg PO DAILY 06/27/18 [History] Ramipril 10 mg PO DAILY 06/27/18 [History] Sodium Chloride/Sodium Bicarb [Nasa Mist Saline [place]] 2 spray NS TID PRN 07/09/18 [History] Ferrous Sulfate [Iron] 325 mg PO DAILY #30 tablet 07/11/18 [Rx] Allergy/AdvReac Type Severity Reaction Status Date / Time atorvastatin [From Lipitor] AdvReac Muscle Pain Verified 11/07/18 15:37 rosuvastatin [From Crestor] AdvReac Muscle Pain Verified 11/07/18 15:37 simvastatin AdvReac Muscle Pain Verified 07/31/19 15:37 - Meds/Allergy Pre-op Review Medications Reviewed: Yes Allergies Reviewed: Yes Beta Blockers on Current Med List: No If Beta Blockers taken, Date/Time (Last Dose taken): None on MAR Anesthesia Results - Labs 11/08/18 02:06 11/08/18 02:06 - Imaging EKG: report reviewed (Sinus tachycardia Right axis deviation Electronically Signed On 11-08-2018 14:20:55 EDT by Alfredo Dukes) Additional studies: Echocardiogram Name: Chavez Daniel Rainey Date of Study: 10/27/2015 Impressions: Normal LV chamber size, wall thickness, and systolic function. LVEF 55-60%. Indeterminate diastolic function. Normal right ventricular structure and function. No significant valvular dysfunction. Name: Redd Chavez Daniel Date of Study: 01/17/2018 Procedures Performed: Transradial LEFT HEART CATH IV Doppler BLD Flow 1st Vessel Stent w/ PTCA Single Major Vessel (proximal LAD LONG) Indications: Abnormal Test - Stress Suspected CAD Impressions: There is severe one vessel coronary artery disease. The left ventricle is normal and has normal contractility EF 50% Patient had successful PTCA/Drug-Eluting Stent placement in the proximal LAD. FFR Measurement: 0.70 LAD LV Ventriculography Ejection Method: LV Gram Ejection Fraction: 50% Coronary Dominance: right Lesion Findings/Interventions * Left Main Coronary Artery The LMCA is angiographically free of disease. * Left Anterior Descending There is a 16 mm long, 60% stenosis in the Proximal LAD. The lesion has a YOVANNY flow of 3 and has no thrombus present. An intervention was performed on the Proximal LAD with a final stenosis of 0%. There were no lesion complications. The final YOVANNY flow was 3. There is a mid 30-40% stenosis * Circumflex There is a 30% stenosis in the Mid Circumflex. * Right Coronary Artery There is a 30% stenosis in the Proximal RCA. There is a 30% stenosis in the Mid RCA. Procedure Patient had successful PTCA/Drug-Eluting Stent placement in the proximal LAD. A pressure tipped wire was advanced through the catheter into the LAD. Measurements of FFR were made during hyperemia induced by intravenous adenosine. FFR Measurement 0.70 Echocardiogram Name: Chavez Rainey Date of Study: 10/27/2015 Impressions: Normal LV chamber size, wall thickness, and systolic function. LVEF 55-60%. Indeterminate diastolic function. Normal right ventricular structure and function. No significant valvular dysfunction. Unable to estimate RVSP due to lack of TR jet. Borderline dilated aortic root, measuring 4.0 cm in diameter at the sinuses of Valsalva. Anesthesia Exam V Vital Signs/O2 Sat, Most Current Temp Pulse Resp BP Pulse Ox 98.3 F 61 17 145/76 97 11/08/18 20:07 11/08/18 20:07 11/08/18 20:07 11/08/18 20:07 11/08/18 19:55 NPO (# of Hours): > 8 hrs Pain Scale: 0 Pain Scale Used: Numeric (1 - 10) - HEENT Pupil (Motor): Pupils equal, EOMI Mallampati: II Teeth: Poor dentition Oral Opening: Greater than 3 - CONTACT CENTER PROFESSIONAL LOC: Oriented CONTACT CENTER PROFESSIONAL Motor: Normal RUE, Normal LUE, Normal RLE, Normal LLE, Normal Face CONTACT CENTER PROFESSIONAL Sensory: Normal: RUE, LUE, RLE, LLE, Face - Cardiac Rhythm: Regular Murmur: None JVD: No Carotid Bruit: No - Pulmonary Breath Sounds: bilateral Clear Respiratory Effort: Symmetrical - Additional Findings Last PLAVIX dose11/07/18 Anesthesia Assess/Plan ASA Score: 3, 4 Level of consciousness: Cooperative Anesthetic Plan: MAC Autologous Blood: Yes Monitoring Plan: Standard Monitors Recovery Plan: Other
[2018-11-09] MEDS: Insulin LISPRO 300 UNITS/3 ML VIAL SQ SCH ×2 (00:35→05:58)
[2018-11-09] MEDS: Pantoprazole 40 MG VIAL IVP SCH (03:52)
[2018-11-09 04:15] LABS: Basophils % 0.3 %; Eosinophils # 0.2 K/mcL (0.0-0.6); Eosinophils % 2.5 %; Hematocrit 25.5 % (37.5-50.1); Hemoglobin 7.9 g/dL (12.9-16.9); Immature Granulocytes % 0.3 % (0-4); Lymphocytes # 1.5 K/mcL (0.6-4.6); Lymphocytes % 25.3 %; Mean Corpuscular Volume 90.4 fL (83.0-100.0); Mean Platelet Volume 9.6 fL (9.4-12.4); Monocytes # 0.9 K/mcL (0.0-1.3); Monocytes % 14.8 %; Neutrophils # 3.3 K/mcL (1.6-8.9); Platelet Count 270 K/mcL (140-400); Red Blood Count 2.82 M/mcL (4.19-5.50); Red Cell Distribution Width 17.7 % (11.5-14.5); Segmented Neutrophils % 56.8 %; White Blood Count 5.9 K/mcL (4.3-11.1)
[2018-11-09 04:33] LABS: BUN/Creatinine Ratio 12 (6-26); Blood Urea Nitrogen 6 mg/dL (8-23); Calcium 8.4 mg/dL (8.6-10.3); Carbon Dioxide 25 mEq/L (23-29); Chloride 108 mEq/L (98-107); Glucose 111 mg/dL (70-105); Magnesium 1.8 mg/dL (1.6-2.6); Osmolality,Calculated 282 (280-300); Potassium 3.8 mEq/L (3.5-5.1); Sodium 137 mEq/L (136-145); eGFR For African Americans > 60 (> 60); eGFR For Non-African Americans > 60 (> 60)
[2018-11-09] MEDS ORDERED: Propofol 500 MG/50 ML INFUS..BTL ONE (07:58)
[2018-11-09] MEDS ORDERED: *HR* EPINEPHrine 1 MG/10 ML SYRINGE IVP ONE (09:10)
--- NOTE | 2018-11-09 09:10 | Internal Med Progress Note ---
Hospitalist Progress Note - Encounter Date of Encounter: 11/09/18 - Exam Vitals: Temp Pulse Resp BP Pulse Ox 98.0 F 82 18 147/60 97 11/09/18 08:25 11/09/18 08:25 11/09/18 08:25 11/09/18 08:25 11/09/18 08:25 Exam: GEN: NAD, A&O x 3, Pleasant and conversant SKIN: [place] warm acyanotic not jaundice HEART: RRR, no murmurs LUNGS: CTA no wheeze or crackles, overall non labored ABDOMEN; Soft, non tender or distended, BS x 4 normactive EXT: No LE edema, Pedal pulses 1+, radial pulses 2+ PSYCH: Mood and affect is appropriate - Assessment and Plan (1) GI bleed Current Visit: Yes Status: Acute Assessment and Plan: Per conversation with 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 He is on Dual antiplatelet therapy which also increase his propensity for bleed by delaying the initial response clots plugged. Discussed with the GI team plan for EGD colonoscopy tomorrow (2) CAD (coronary artery disease) Current Visit: Yes Status: Acute Assessment and Plan: Presently denies chest pain continue medical management. (3) Diabetes mellitus Current Visit: Yes Status: Acute Assessment and Plan: A1c in the morning, continue insulin per protocol (4) Symptomatic anemia Current Visit: Yes Status: Acute Assessment and Plan: Patient presenting with a hemoglobin of 6.7 likely secondary to GI losses. Not improved to 8.2 after packed red blood cell. Patient has a history of chronic anemia due to iron deficiency from chronic GI blood loss. Patient followed by Dr. Richardson. Patient has a history of intolerance to oral iron therapy and has been receiving multiple IV iron infusions the last of which was earlier this year. -Status post 2 units of packed red blood cells -Trend H&H - Time Spent with Patient Total time spent is greater than 50% in coordination of care (as documented) at patient's floor/unit and/or counseling patient: Internal Medicine: Result - Labs CBC & Chem 7: 11/09/18 03:55 11/09/18 03:55 Labs: Short CBC 11/09/18 Range/Units 03:55 WBC 5.9 (4.3-11.1) K/mcL Hgb 7.9 L (12.9-16.9) g/dL Hct 25.5 L (37.5-50.1) % Plt Count 270 (140-400) K/mcL Neutrophils # 3.3 (1.6-8.9) K/mcL BMP 11/09/18 03:55 Sodium 137 Potassium 3.8 Chloride 108 H Carbon Dioxide 25 BUN 6 L Creatinine 0.50 L Glucose 111 H Calcium 8.4 L - ABG Interpretation ABG results: PT/INR, D-dimer PT 11.2 Seconds (9.4-12.1) 11/07/18 16:11 Consult Discharge Plan - Plan Referrals: Lydia Gray, SEMICONDUCTOR ASSEMBLER [Primary Care Provider] - (1) GI bleed Qualifiers: GI bleed type/associated pathology: melena Qualified Code(s): K92.1 - Melena (2) CAD (coronary artery disease) Qualifiers: Coronary Disease-Associated Artery/Lesion type: [place] artery [place] vs. transplanted heart: [place] heart Associated angina: with stable angina Qualified Code(s): I25.118 - Atherosclerotic heart disease of [place] coronary artery with other forms of angina pectoris (3) Diabetes mellitus Qualifiers: Diabetes mellitus type: type 2 Diabetes mellitus long term care administrator insulin use: with half-way use Diabetes mellitus complication status: with other specified complication Qualified Code(s): E11.69 - Type 2 diabetes mellitus with other specified complication; Z79.4 - [facility] (current) use of insulin
[2018-11-09 09:42] VITALS: BP 120/64
[2018-11-09] MEDS: Aspirin 81 MG TAB.CHEW PO SCH (09:54)
[2018-11-09] MEDS: Lisinopril 20 MG TABLET PO SCH (09:54)
[2018-11-09] MEDS: Iron Sucrose Complex 200 MG in 0.9 % Sodium Chloride 100 ML IVPB SCH (09:54)
--- NOTE | 2018-11-09 10:15 | Discharge Summary ---
Date of Encounter: 11/09/18 Time of Encounter: 10:00 - Discharge Diagnosis (1) GI bleed Priority: Primary Status: Acute Assessment and Plan: 68 year old male with past medical history significant for CAD with 8 stents (last stent placement Fall 2017), hyperlipidemia, COPD, sleep apnea with CPAP, chronic anemia, diabetes, GERD, and depression who presents to the ED due to concern of low hemoglobin and recent episodes of GI bleed. 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 Patient reports that last week he had several episodes of bright red blood per rectum over the course of 3 days, the last episode of which occurred on Monday. Patient is currently on aspirin and Plavix. Patient has a history of diverticulosis and diverticulitis and was concerned that me may have developed diverticulitis again. Patient reports feeling fatigued and lightheaded over the past few days. Denies any chest pain or shortness of breath. Patient states he has had workup for his anemia and for GI bleed and currently follows with Dr. Richardson He was assessed with an acute GI bleed and was transfused 2units of blood with an appropriate response. He had an endoscopy and colonsocopy done showing a single bleeding angiodysplastic lesion which was injected. Per, Gi he is to resume aspirin and plavix on saturday 11/11 due to stents less than a year ago. Will obtain outpatient CBC on monday and follow up with GI on monday. Discharged in a stable condition Qualifiers: GI bleed type/associated pathology: melena Qualified Code(s): K92.1 - Melena (2) CAD (coronary artery disease) Priority: Primary Status: Acute Qualifiers: Coronary Disease-Associated Artery/Lesion type: [place] artery [place] vs. transplanted heart: [place] heart Associated angina: with stable angina Qualified Code(s): I25.118 - Atherosclerotic heart disease of [place] coronary artery with other forms of angina pectoris (3) Diabetes mellitus Priority: Primary Status: Acute Qualifiers: Diabetes mellitus type: type 2 Diabetes mellitus nursing home insulin use: with nursing home use Diabetes mellitus complication status: with other specified complication Qualified Code(s): E11.69 - Type 2 diabetes mellitus with other specified complication; Z79.4 - [facility] (current) use of insulin (4) Symptomatic anemia Priority: Primary Status: Acute Hospital course: Mr. Rainey is a 68 year old male - Time Spent with Patient Total time spent providing and/or coordinating discharge services: - Discharge Medications Prescriptions: Continued Pioglitazone [Actos] 45 mg PO DAILY metFORMIN [Glucophage] 1,000 mg PO BID Multivits,Ca,Min/Iron/FA/Lycop [Centrum Men's Tablet] 1 tab PO DAILY Sertraline [Zoloft] 150 mg PO DAILY Albuterol Sulfate [Ventolin Hfa] 2 inh IH Q6HR PRN PRN Reason: Shortness Of Breath Insulin Degludec [Tresiba Flextouch U-200] 10 unit SQ HS Dapagliflozin Propanediol [Farxiga] 10 mg PO DAILY glipiZIDE [Glipizide] 10 mg PO BID Amlodipine Besylate 2.5 mg PO DAILY Omeprazole [PriLOSEC] 20 mg PO DAILY Ramipril 10 mg PO DAILY Sodium Chloride/Sodium Bicarb [Nasa Mist Saline [place]] 2 spray NS TID PRN PRN Reason: Nasal Congestion Ferrous Sulfate [Iron] 325 mg PO DAILY #30 tablet Aspirin 81 mg PO DAILY #30 tab.chew Clopidogrel [Plavix] 75 mg PO DAILY #0 Home Medications: Multivits,Ca,Min/Iron/FA/Lycop [Centrum Men's Tablet] 1 tab PO DAILY 04/22/15 [History] Pioglitazone [Actos] 45 mg PO DAILY 04/22/15 [History] metFORMIN [Glucophage] 1,000 mg PO BID 04/22/15 [History] Sertraline [Zoloft] 150 mg PO DAILY 09/29/17 [History] Albuterol Sulfate [Ventolin Hfa] 2 inh IH Q6HR PRN 12/12/17 [History] Dapagliflozin Propanediol [Farxiga] 10 mg PO DAILY 12/12/17 [History] Insulin Degludec [Tresiba Flextouch U-200] 10 unit SQ HS 12/12/17 [History] glipiZIDE [Glipizide] 10 mg PO BID 04/12/18 [History] Amlodipine Besylate 2.5 mg PO DAILY 06/27/18 [History] Omeprazole [PriLOSEC] 20 mg PO DAILY 06/27/18 [History] Ramipril 10 mg PO DAILY 06/27/18 [History] Sodium Chloride/Sodium Bicarb [Nasa Mist Saline [place]] 2 spray NS TID PRN 07/09/18 [History] Ferrous Sulfate [Iron] 325 mg PO DAILY #30 tablet 07/11/18 [Rx] Aspirin 81 mg PO DAILY #30 tab.chew 11/09/18 [Rx] Clopidogrel [Plavix] 75 mg PO DAILY #0 11/09/18 [Rx] Allergies/Adverse Reactions: Allergy/AdvReac Type Severity Reaction Status Date / Time atorvastatin [From Lipitor] AdvReac Muscle Pain Verified 11/07/18 15:37 rosuvastatin [From Crestor] AdvReac Muscle Pain Verified 11/07/18 15:37 simvastatin AdvReac Muscle Pain Verified 11/07/18 15:37 Date of admission: 11/07/18 21:21 Primary care physician: Lydia Gray CNP Consults: 11/08/18 01:35 Consult to Gastroenterology [CONS] Routine Consulting Provider: [facility] [place] Reason for Consult: GI bleed of unclear source. Call Completed: No 11/08/18 16:24 Consult to Oncology Hematology [CONS] Routine Consulting Provider: Lorenza Lees Reason for Consult: Established patient Time Notified: 14:00 Call Completed: Yes - Constitutional Vitals: Temp Pulse Resp BP Pulse Ox 97.9 F 87 18 120/64 97 11/09/18 09:41 11/09/18 09:41 11/09/18 09:41 11/09/18 09:41 11/09/18 09:41 Exam: GEN: NAD, A&O x 3, Pleasant and conversant SKIN: [place] warm acyanotic not jaundice HEART: RRR, no murmurs LUNGS: CTA no wheeze or crackles, overall non labored ABDOMEN; Soft, non tender or distended, BS x 4 normactive EXT: No LE edema, Pedal pulses 1+, radial pulses 2+ PSYCH: Mood and affect is appropriate - Patient Status Disposition: Home, Self-Care Condition: Good - Ambulatory Orders Ambulatory Orders: Complete Blood Count [HEME] Time Frame: 11/12/18, Facility: [facility], Location: [facility] - Discharge Instructions Instructions: Anemia (GEN) Follow Up With: Arian Richardson MD [Partnered Physician] - 11/13/18 10:00 am Lydia Gray CNP [Primary Care Provider] -
[2018-11-09] MEDS ORDERED: Insulin LISPRO 300 UNITS/3 ML VIAL SQ SCH ×2 (11:30→21:00)
== END 2018-11-09 11:37 | disposition home or self-care (01) ==
LOC: EMEROOARM 15:34 → 3ANU 15:34 → SUATTDRO 21:21 → 3ANU 22:41
PROVIDERS: ADMIT Internal Medicine; ATTEND Pharmacist
PROC: ENDOCCB (2018-11-09 17:30)